=== PATIENT | male | born 1965 | race American Indian/Alaskan Native ===

== ENCOUNTER 2019-02-18 03:25 | Inpatient (IN) | payer SELFPAY ==
[2019-02-18] MEDS ORDERED: NITRO-BID 2% TP ONE (03:40)
[2019-02-18 03:54] LABS: Basophils # (Auto) 0.1 K/mm3 (0.0-0.1); Eosinophils # (Auto) 0.2 K/mm3 (0.0-0.4); Eosinophils % (Auto) 3.4 % (0.0-4.3); Hemoglobin 13.4 gm/dl (11.8-15.2); Lymphocytes # (Auto) 3.2 K/mm3 (1.2-5.4); Mean Corpuscular HGB Conc 34 % (32-34); Mean Corpuscular Volume 92 fl (84-94); Monocytes # (Auto) 0.5 K/mm3 (0.0-0.8); Monocytes % (Auto) 6.2 % (0.0-7.3); Platelet Count 249 K/mm3 (140-440); Red Blood Count 4.33 M/mm3 (3.65-5.03); Red Cell Distribution Width 14.8 % (13.2-15.2)
[2019-02-18 04:05] LABS: INR 1.3 (0.87-1.13)
[2019-02-18 04:06] LABS: Partial Thromboplastin Time 30.8 Sec. (24.2-36.6)
--- NOTE | 2019-02-18 04:10 | XRay Report ---
CHEST 1 VIEW INDICATION: dyspnea. COMPARISON: None. FINDINGS: Support devices: None. Heart: Moderate cardiomegaly. Lungs/Pleura: Limited evaluation due to body habitus. Possible basilar infiltrates. Vascular congesti on is mild. Additional findings: None. IMPRESSION: 1. Mild vascular congestion. 2. Possible basilar infiltrates. Signer Name: Zachary Willis MD Signed: 02/18/2019 4:06 AM Workstation Name: [id number]
[2019-02-18 04:13] LABS: BUN/Creatinine Ratio 8; Blood Urea Nitrogen 9 mg/dL (9-20); Calcium 9.3 mg/dL (8.4-10.2); Hemolysis Index 5
[2019-02-18] MEDS ORDERED: LASIX IV ONE (04:31)
--- NOTE | 2019-02-18 05:04 | Emergency Department Report ---
ED Shortness of Breath HPI - General Chief Complaint: Dyspnea/Respdistress Stated Complaint: SHANTEL Time Seen by Provider: 02/18/19 03:37 Source: patient, family, EMS Mode of arrival: Stretcher Limitations: No Limitations - History of Present Illness Initial Comments: Patient is a 53-year-old gentleman with a history of hypertension and congestive heart failure who is presenting with shortness of breath. Patient has been out of his medications for the last 2 months. Patient's found in respiratory distress with O2 sat in the mid 80s. He is placed on a nonrebreather. Patient states he does have some chest tightness. Patient states his Breath Is Worse with Lying Flat and Exertion. He Denies Any Fevers Chills Nausea Vomiting. Patient Has Had an Mild Cough That Is Productive of Frothy Sputum. - Related Data Allergies Allergy/AdvReac Type Severity Reaction Status Date / Time No Known Allergies Allergy Verified 02/18/19 03:44 ED Review of Systems ROS: Stated complaint: SHANTEL Other details as noted in HPI Comment: All other systems reviewed and negative ED Past Medical Hx - Past Medical History Hx Hypertension: Yes Hx Congestive Heart Failure: Yes Additional medical history: high cholesterol - Surgical History Past Surgical History?: No - Social History Smoking Status: Current Every Day Smoker Substance Use Type: Alcohol ED Physical Exam - General Limitations: No Limitations General appearance: alert, in no apparent distress - Head Head exam: Present: atraumatic, normocephalic - Eye Eye exam: Present: normal appearance - ENT ENT exam: Present: mucous membranes moist - Neck Neck exam: Present: normal inspection - Respiratory Respiratory exam: Present: normal lung sounds bilaterally, rales. Absent: respiratory distress, wheezes, rhonchi, stridor - Cardiovascular Cardiovascular Exam: Present: regular rate, normal rhythm, normal heart sounds. Absent: systolic murmur, diastolic murmur, rubs, gallop - GI/Abdominal GI/Abdominal exam: Present: soft, normal bowel sounds. Absent: distended, tenderness, guarding, rebound - Rectal Rectal exam: Present: deferred - Extremities Exam Extremities exam: Present: normal inspection, pedal edema - Back Exam Back exam: Present: normal inspection - Neurological Exam Neurological exam: Present: alert, oriented X3 - Psychiatric Psychiatric exam: Present: normal affect, normal mood - Skin Skin exam: Present: warm, dry, intact, normal color. Absent: rash ED Course Vital Signs 02/18/19 02/18/19 02/18/19 03:33 03:34 03:35 Temperature 97.9 F Pulse Rate 83 81 76 Respiratory 15 20 17 Rate Blood Pressure 142/74 142/74 O2 Sat by Pulse 97 91 93 Oximetry 02/18/19 02/18/19 02/18/19 03:37 03:39 03:41 Temperature Pulse Rate 82 83 83 Respiratory 20 17 19 Rate Blood Pressure 142/74 142/74 142/74 O2 Sat by Pulse 97 97 97 Oximetry ED Medical Decision Making - Lab Data Result diagrams: 02/18/19 03:38 02/18/19 03:38 Lab Results 02/18/19 02/18/19 02/18/19 Range/Units 03:38 03:38 03:38 WBC 7.3 (4.5-11.0) K/mm3 RBC 4.33 (3.65-5.03) M/mm3 Hgb 13.4 (11.8-15.2) gm/dl Hct 40.0 (35.5-45.6) % MCV 92 (84-94) fl MCH 31 (28-32) pg MCHC 34 (32-34) % RDW 14.8 (13.2-15.2) % Plt Count 249 (140-440) K/mm3 Lymph % (Auto) 44.0 H (13.4-35.0) % [place] % (Auto) 6.2 (0.0-7.3) % Eos % (Auto) 3.4 (0.0-4.3) % Baso % (Auto) 1.0 (0.0-1.8) % Lymph # 3.2 (1.2-5.4) K/mm3 [place] # 0.5 (0.0-0.8) K/mm3 Eos # 0.2 (0.0-0.4) K/mm3 Baso # 0.1 (0.0-0.1) K/mm3 Seg Neutrophils % 45.4 (40.0-70.0) % Seg Neutrophils # 3.3 (1.8-7.7) K/mm3 PT 15.9 H (12.2-14.9) Sec. INR 1.30 H (0.87-1.13) APTT 30.8 (24.2-36.6) Sec. Sodium 142 (137-145) mmol/L Potassium 3.6 (3.6-5.0) mmol/L Chloride 103.5 (98-107) mmol/L Carbon Dioxide 26 (22-30) mmol/L Anion Gap 16 mmol/L BUN 9 (9-20) mg/dL Creatinine 1.1 (0.8-1.5) mg/dL Estimated GFR > 60 ml/min BUN/Creatinine Ratio 8 % Glucose 112 H (75-100) mg/dL Calcium 9.3 (8.4-10.2) mg/dL Troponin T < 0.010 (0.00-0.029) ng/mL NT-Pro-B Natriuret Pep (0-900) pg/mL 02/18/19 Range/Units 03:38 WBC (4.5-11.0) K/mm3 RBC (3.65-5.03) M/mm3 Hgb (11.8-15.2) gm/dl Hct (35.5-45.6) % MCV (84-94) fl MCH (28-32) pg MCHC (32-34) % RDW (13.2-15.2) % Plt Count (140-440) K/mm3 Lymph % (Auto) (13.4-35.0) % [place] % (Auto) (0.0-7.3) % Eos % (Auto) (0.0-4.3) % Baso % (Auto) (0.0-1.8) % Lymph # (1.2-5.4) K/mm3 [place] # (0.0-0.8) K/mm3 Eos # (0.0-0.4) K/mm3 Baso # (0.0-0.1) K/mm3 Seg Neutrophils % (40.0-70.0) % Seg Neutrophils # (1.8-7.7) K/mm3 PT (12.2-14.9) Sec. INR (0.87-1.13) APTT (24.2-36.6) Sec. Sodium (137-145) mmol/L Potassium (3.6-5.0) mmol/L Chloride (98-107) mmol/L Carbon Dioxide (22-30) mmol/L Anion Gap mmol/L BUN (9-20) mg/dL Creatinine (0.8-1.5) mg/dL Estimated GFR ml/min BUN/Creatinine Ratio % Glucose (75-100) mg/dL Calcium (8.4-10.2) mg/dL Troponin T (0.00-0.029) ng/mL NT-Pro-B Natriuret Pep 1026 H (0-900) pg/mL - EKG Data -: EKG Interpreted by Me EKG shows normal: sinus rhythm, axis, intervals, QRS complexes Rate: normal - EKG Data 02/18/19 05:02 Patient with T-wave inversions lateral leads - Radiology Data Chest x-ray shows cardiomegaly with pulmonary edema - Medical Decision Making Patient is a 53-year-old [place] male who is presenting with recent respiratory distress secondary to pulmonary edema. Patient is maintaining O2 sat within normal limits with 2 L of oxygen. Patient given Lasix to started diuresing him. Patient be admitted to the hospitalist service. Critical Care Time: Yes (30) Critical care attestation.: If time is entered above; I have spent that time in minutes in the direct care of this critically ill patient, excluding procedure time. ED Disposition Clinical Impression: Acute congestive heart failure Qualifiers: Heart failure type: unspecified Qualified Code(s): I50.9 - Heart failure, unspecified Pulmonary edema Qualifiers: Chronicity: acute Qualified Code(s): J81.0 - Acute pulmonary edema Disposition: OP ADMIT IP TO THIS HOSP Is pt being admited?: Yes Does the pt Need Aspirin: No Condition: Stable Instructions: Pulmonary Edema (ED) Referrals: PRIMARY CARE, [Primary Care Provider] - 3-5 Days Time of Disposition: 05:03
[2019-02-18] MEDS ORDERED: SODIUM CHLORIDE FLUSH SYRINGE 10 ML IV PRN (05:27)
[2019-02-18] MEDS ORDERED: TYLENOL PO PRN (05:27)
[2019-02-18] MEDS ORDERED: ZOFRAN IV PRN (05:27)
--- NOTE | 2019-02-18 05:37 | History and Physical Report ---
History of Present Illness Date of examination: 02/18/19 History of present illness: 53-year-old man with a history of hypertension, CHF, hyperlipidemia comes emergency room with complaints of shortness of breath, PND and orthopnea. Also complain of chest pain going across his chest, intermittent for a few seconds, intensity 4/10, no radiation, candidate and exacerbating or relieving factors. He moved here in November and since then he ran out of his medications. Denies nausea vomiting, diaphoresis, palpitation eview Of Systems: Constitutional: no weight loss, fever, chills Ears, eyes, nose, mouth and throat: no nasal congestion, no nasal discharge, no sinus pressure, blurry vision, diplopia Neck: No neck pain or rigidity. Cardiovascular: No palpitation Respiratory: No cough Gastrointestinal: No hematochezia, abdominal pain Genitourinary : no dysuria, frequency , hematuria Musculoskeletal: no muscle ache , joint pain Integumentary: no rash, no pruritis Neurological: no parathesias, focal weakness Endocrine: no cold or heat intolerance, no polyuria or polydipsia Hematologic/Lymphatic: no easy bruising, no easy bleeding, no gland swelling Allergic/Immunologic: no urticaria, no angioedema. PAST MEDICAL HISTORY:hypertension, CHF, hyperlipidemia PAST SURGICAL HISTORY:None FAMILY HISTORY:hypertension, diabetes SOCIAL HISTORY: + tobacco, no drugs, + alcohol Medications and Allergies Allergies Allergy/AdvReac Type Severity Reaction Status Date / Time No Known Allergies Allergy Verified 02/18/19 03:44 Active Meds: Active Medications Acetaminophen (Tylenol) 650 mg PO Q4H PRN PRN Reason: Pain MILD(1-3)/Fever >100.5/MAYORGA Aspirin (Baby Aspirin) 81 mg PO QDAY [facility] Carvedilol (Coreg) 3.125 mg PO BID [facility] Enoxaparin Sodium (Lovenox) 30 mg SUB-Q QDAY [facility] Furosemide (Lasix) 40 mg IV BID@0600,1800 [facility] Lisinopril (Zestril) 2.5 mg PO QDAY [facility] Ondansetron HCl (Zofran) 4 mg IV Q8H PRN PRN Reason: Nausea And Vomiting Sodium Chloride (Sodium Chloride Flush Syringe 10 Ml) 10 ml IV BID [facility] Sodium Chloride (Sodium Chloride Flush Syringe 10 Ml) 10 ml IV PRN PRN PRN Reason: LINE FLUSH Exam - Physical Exam Narrative exam: General Apperance: The patient sitting in bed no acute distress HEENT: Normocephalic, atraumatic. Pupils equally round and reactive to light, extraocular movement intact, and no sclericterus or JVD or thyromegaly or nodule. Neck supple, no carotid bruit, mucous membranes moist, no exudate or erythema Heart: S1-S2, regular is rhythm Lungs: crackles bilaterally, breathing comfortable Abdomen: Positive bowel sounds, soft, nontender, nondistended, no organomegaly Extremities: No edema cyanosis clubbing Skin: no rash, nodule, warm and dry Neuro:CN 2 -12 intact, motor/sensory intact, speech is fluent - Constitutional Vitals: Temp Pulse Resp BP Pulse Ox 97.9 F 86 23 138/74 87 02/18/19 03:33 02/18/19 05:01 02/18/19 05:01 02/18/19 05:01 02/18/19 05:01 Results - Labs CBC & Chem 7: 02/18/19 03:38 02/18/19 03:38 Labs: Abnormal lab results 02/18/19 02/18/19 02/18/19 Range/Units 03:38 03:38 03:38 Lymph % (Auto) 44.0 H (13.4-35.0) % PT 15.9 H (12.2-14.9) Sec. INR 1.30 H (0.87-1.13) Glucose 112 H (75-100) mg/dL NT-Pro-B Natriuret Pep (0-900) pg/mL 02/18/19 Range/Units 03:38 Lymph % (Auto) (13.4-35.0) % PT (12.2-14.9) Sec. INR (0.87-1.13) Glucose (75-100) mg/dL NT-Pro-B Natriuret Pep 1026 H (0-900) pg/mL - Imaging and Cardiology EKG: image reviewed Chest x-ray: report reviewed Assessment and Plan Assessment Acute on chronic CHF, probably diastolic Hypertension Hyperlipidemia Obesity Plan Admit to medicine As diuresed with IV Lasix Cardiac enzymes, echo, consult cardiology Monitor I's and O's calmest check daily weights Start beta homar, ELI inhibitor, aspirin DVT prophylaxis
[2019-02-18 06:00] LABS: Creatine Kinase MB 4.2 ng/mL (0.0-4.0)
[2019-02-18] MEDS: LASIX IV SCH ×2 (06:38→18:40)
--- NOTE | 2019-02-18 09:23 | Event Note ---
Date: 02/18/19 Patient was admitted today was seen and examined. Reviewed laboratory and radiological data. Continue with the same management
[2019-02-18] MEDS ORDERED: BABY ASPIRIN ONE (09:57)
[2019-02-18] MEDS ORDERED: COREG ONE (09:58)
[2019-02-18] MEDS ORDERED: LOVENOX SUB-Q ONE (09:58)
[2019-02-18] MEDS ORDERED: ZESTRIL ONE (09:59)
[2019-02-18] MEDS: SODIUM CHLORIDE FLUSH SYRINGE 10 ML IV SCH ×2 (10:04→21:50)
[2019-02-18] MEDS: ZESTRIL PO SCH (10:04)
[2019-02-18] MEDS: LOVENOX SUB-Q SCH (10:04)
[2019-02-18] MEDS: BABY ASPIRIN PO SCH (10:04)
[2019-02-18] MEDS: COREG PO SCH ×2 (10:04→21:49)
[2019-02-18 12:28] LABS: Creatine Kinase MB 4.5 ng/mL (0.0-4.0)
--- NOTE | 2019-02-18 16:56 | Consultation ---
History of Present Illness Consult date: 02/18/19 Consult reason: congestive heart failure History of present illness: The patient's 53-year-old man reports a history of chronic hypertension treated in [facility] with Prinivil, carvedilol and aspirin. He recently moved to the [facility], as a consequence has not seen a doctor, and has been off his medications for 3 months. He presented to the emergency room with progressive shortness of breath and chest x-ray in the emergency room revealed cardiomegaly and mild interstitial edema consistent with congestive heart failure. There was no chest pain, no palpitations, no syncope and minimal to no significant lower extremity edema. The patient denies any known history of heart failure, does not remember any significant cardiac workup or cardiology follow-up while he lived in [place]. ECG shows sinus rhythm with diffuse nonspecific ST and T-wave abnormalities. Echocardiogram today shows a dilated cardiomyopathy, moderate to severe left ventricle systolic dysfunction, ejection fraction 35%. In addition, there is severe dilatation of the left atrium, and at least moderate mitral regurgitation. The chronicity of his left ventricular dysfunction, valvular regurgitation and atrial dilatation is uncertain, he has no awareness of any significant prior cardiac pathology. Past History Past Medical History: hypertension Medications and Allergies Allergies Allergy/AdvReac Type Severity Reaction Status Date / Time No Known Allergies Allergy Verified 02/18/19 03:44 Active Meds: Active Medications Acetaminophen (Tylenol) 650 mg PO Q4H PRN PRN Reason: Pain MILD(1-3)/Fever >100.5/MAYORGA Last Admin: 02/18/19 06:58 Dose: 650 mg Documented by: Aspirin (Baby Aspirin) 81 mg PO QDAY [facility] Last Admin: 02/18/19 10:04 Dose: 81 mg Documented by: Carvedilol (Coreg) 3.125 mg PO BID [facility] Last Admin: 02/18/19 10:04 Dose: 3.125 mg Documented by: Enoxaparin Sodium (Lovenox) 40 mg SUB-Q QDAY [facility] Last Admin: 02/18/19 10:04 Dose: 40 mg Documented by: Furosemide (Lasix) 40 mg IV BID@0600,1800 [facility] Last Admin: 02/18/19 06:38 Dose: Not Given Documented by: Lisinopril (Zestril) 2.5 mg PO QDAY [facility] Last Admin: 02/18/19 10:04 Dose: 2.5 mg Documented by: Ondansetron HCl (Zofran) 4 mg IV Q8H PRN PRN Reason: Nausea And Vomiting Sodium Chloride (Sodium Chloride Flush Syringe 10 Ml) 10 ml IV BID [facility] Last Admin: 02/18/19 10:04 Dose: 10 ml Documented by: Sodium Chloride (Sodium Chloride Flush Syringe 10 Ml) 10 ml IV PRN PRN PRN Reason: LINE FLUSH Review of Systems Cardiovascular: edema, shortness of breath, no chest pain, no orthopnea, no palpitations, no rapid/irregular heart beat, no syncope, no lightheadedness Physical Examination Vital Signs Temp Pulse Resp Pulse Ox 97.9 F 83 15 97 02/18/19 03:33 02/18/19 03:33 02/18/19 03:33 02/18/19 03:33 General appearance: no acute distress HEENT: Positive: PERRL Neck: Positive: neck supple Cardiac: Positive: Reg Rate and Rhythm Lungs: Positive: Decreased Breath Sounds Neuro: Positive: Grossly Intact Abdomen: Positive: Soft Male genitourinary: Positive: deferred Skin: Positive: Clear Extremities: Present: edema (trace) Results 02/18/19 03:38 02/18/19 03:38 Cardiac Enzymes 02/18/19 02/18/19 Range/Units 05:34 11:59 CK-MB (CK-2) 4.2 H 4.5 H (0.0-4.0) ng/mL Coagulation 02/18/19 Range/Units 03:38 PT 15.9 H (12.2-14.9) Sec. INR 1.30 H (0.87-1.13) APTT 30.8 (24.2-36.6) Sec. CBC 02/18/19 Range/Units 03:38 WBC 7.3 (4.5-11.0) K/mm3 RBC 4.33 (3.65-5.03) M/mm3 Hgb 13.4 (11.8-15.2) gm/dl Hct 40.0 (35.5-45.6) % Plt Count 249 (140-440) K/mm3 Lymph # 3.2 (1.2-5.4) K/mm3 [place] # 0.5 (0.0-0.8) K/mm3 Eos # 0.2 (0.0-0.4) K/mm3 Baso # 0.1 (0.0-0.1) K/mm3 Comprehensive Metabolic Panel 02/18/19 Range/Units 03:38 Sodium 142 (137-145) mmol/L Potassium 3.6 (3.6-5.0) mmol/L Chloride 103.5 (98-107) mmol/L Carbon Dioxide 26 (22-30) mmol/L BUN 9 (9-20) mg/dL Creatinine 1.1 (0.8-1.5) mg/dL Glucose 112 H (75-100) mg/dL Calcium 9.3 (8.4-10.2) mg/dL EKG interpretations - Telemetry EKG Rhythm: Sinus Rhythm Assessment and Plan - Patient Problems (1) Acute congestive heart failure Current Visit: Yes Status: Acute Qualifiers: Heart failure type: unspecified Qualified Code(s): I50.9 - Heart failure, unspecified Plan to address problem: Echocardiogram shows a dilated cardiomyopathy with moderate to severe left ventricular systolic dysfunction, ejection fraction 35%. We will institute optimal guidelines directed medical therapy for systolic heart failure. A predischarge thallium stress test will be recommended once heart failure fluid overload is resolved.
[2019-02-18] MEDS ORDERED: LASIX ONE (18:34)
[2019-02-18] MEDS: ALDACTONE PO SCH (21:49)
[2019-02-19 05:18] LABS: Basophils # (Auto) 0.1 K/mm3 (0.0-0.1); Basophils % (Auto) 1.3 % (0.0-1.8); Eosinophils # (Auto) 0.2 K/mm3 (0.0-0.4); Eosinophils % (Auto) 3.2 % (0.0-4.3); Hematocrit 41.8 % (35.5-45.6); Hemoglobin 14.3 gm/dl (11.8-15.2); Lymphocytes # (Auto) 2.9 K/mm3 (1.2-5.4); Lymphocytes % (Auto) 40.7 % (13.4-35.0); Mean Corpuscular HGB Conc 34 % (32-34); Mean Corpuscular Volume 93 fl (84-94); Monocytes # (Auto) 0.5 K/mm3 (0.0-0.8); Monocytes % (Auto) 7.3 % (0.0-7.3); Platelet Count 247 K/mm3 (140-440); Red Blood Count 4.52 M/mm3 (3.65-5.03); Red Cell Distribution Width 14.7 % (13.2-15.2)
[2019-02-19 05:42] LABS: BUN/Creatinine Ratio 9; Blood Urea Nitrogen 10 mg/dL (9-20); Calcium 9.2 mg/dL (8.4-10.2); Hemolysis Index 4
[2019-02-19] MEDS: LASIX IV SCH (05:59)
--- NOTE | 2019-02-19 09:59 | Progress Note ---
Assessment and Plan Congestive heart failure, acute Chronic hypertension Noncompliant with medications and outpatient follow ups. Echocardiogram this admission shows a dilated cardiomyopathy, moderate to severe left ventricle systolic dysfunction, ejection fraction 35%. In addition, there is severe dilatation of the left atrium, and at least moderate mitral regurgitation. The chronicity of his left ventricular dysfunction, valvular regurgitation and atrial dilatation is uncertain. He has no awareness of any significant prior cardiac pathology. Recommendations: Continue optimal medical therapy for acute systolic heart failure. A predischarge thallium stress test will be done today. Results are pending. Subjective Date of service: 02/19/19 Interval history: Patient reports his breathing is better. He denies chest pain. Objective Vital Signs Temp Pulse Pulse Resp BP BP Pulse Ox 02/19/19 08:50 94 02/19/19 05:17 98.6 F 89 24 135/87 94 02/18/19 23:26 96.5 F L 84 24 161/99 91 02/18/19 21:49 165/108 02/18/19 21:05 91 H 20 98 02/18/19 20:41 97 02/18/19 20:23 97.9 F 91 H 22 165/105 95 02/18/19 19:13 82 195/130 02/18/19 19:01 88 22 195/130 95 02/18/19 18:51 88 25 H 159/110 92 02/18/19 18:41 79 21 159/110 91 02/18/19 18:37 93 H 02/18/19 18:21 83 27 H 91 02/18/19 18:11 76 25 H 94 02/18/19 18:01 75 25 H 96 02/18/19 17:51 79 13 94 02/18/19 17:41 80 20 95 02/18/19 17:31 77 18 96 02/18/19 17:21 82 17 93 02/18/19 17:11 87 13 95 02/18/19 17:01 80 14 98 02/18/19 16:51 89 28 H 93 02/18/19 16:40 84 22 92 02/18/19 16:30 81 15 172/107 95 02/18/19 16:21 91 H 15 172/107 95 02/18/19 16:11 84 18 172/107 95 02/18/19 16:03 74 20 155/87 95 02/18/19 16:01 86 22 172/107 97 02/18/19 15:51 70 15 172/107 95 02/18/19 15:41 88 19 172/107 93 02/18/19 15:31 88 24 172/107 95 02/18/19 15:21 83 25 H 172/107 92 02/18/19 15:11 77 28 H 172/107 92 02/18/19 15:01 70 23 172/107 95 02/18/19 14:51 82 20 172/107 91 02/18/19 14:41 87 20 172/107 94 02/18/19 14:31 74 24 172/107 87 02/18/19 14:21 90 27 H 172/107 88 02/18/19 14:11 87 24 172/107 90 02/18/19 14:01 77 18 155/87 94 02/18/19 13:51 89 22 155/87 93 02/18/19 13:41 142/76 88 02/18/19 13:31 142/76 86 02/18/19 13:21 142/76 93 02/18/19 13:11 142/76 94 02/18/19 13:01 142/76 97 02/18/19 12:51 142/76 91 02/18/19 12:41 134/72 91 02/18/19 12:31 150/78 92 02/18/19 12:21 142/76 93 02/18/19 12:20 80 18 142/74 95 02/18/19 12:10 134/72 85 02/18/19 12:03 134/72 92 02/18/19 10:11 87 15 134/72 02/18/19 10:05 85 16 134/72 94 02/18/19 10:04 85 134/72 02/18/19 10:01 87 15 134/72 94 - Physical Examination General: No Apparent Distress HEENT: Positive: PERRL Neck: Positive: neck supple Cardiac: Positive: Reg Rate and Rhythm Lungs: Positive: Decreased Breath Sounds Neuro: Positive: Grossly Intact Abdomen: Positive: Soft Extremities: Absent: edema - Labs and Meds Cardiac Enzymes 02/18/19 Range/Units 11:59 CK-MB (CK-2) 4.5 H (0.0-4.0) ng/mL CBC 02/19/19 Range/Units 05:02 WBC 7.2 (4.5-11.0) K/mm3 RBC 4.52 (3.65-5.03) M/mm3 Hgb 14.3 (11.8-15.2) gm/dl Hct 41.8 (35.5-45.6) % Plt Count 247 (140-440) K/mm3 Lymph # 2.9 (1.2-5.4) K/mm3 [place] # 0.5 (0.0-0.8) K/mm3 Eos # 0.2 (0.0-0.4) K/mm3 Baso # 0.1 (0.0-0.1) K/mm3 Comprehensive Metabolic Panel 02/19/19 Range/Units 05:02 Sodium 141 (137-145) mmol/L Potassium 3.5 L (3.6-5.0) mmol/L Chloride 99.6 (98-107) mmol/L Carbon Dioxide 27 (22-30) mmol/L BUN 10 (9-20) mg/dL Creatinine 1.1 (0.8-1.5) mg/dL Glucose 103 H (75-100) mg/dL Calcium 9.2 (8.4-10.2) mg/dL
[2019-02-19] MEDS: BABY ASPIRIN PO SCH (10:41)
[2019-02-19] MEDS: ALDACTONE PO SCH (10:41)
[2019-02-19] MEDS: LOVENOX SUB-Q SCH (10:42)
[2019-02-19] MEDS: ZESTRIL PO SCH (10:42)
[2019-02-19] MEDS: SODIUM CHLORIDE FLUSH SYRINGE 10 ML IV SCH (10:43)
[2019-02-19] MEDS: COREG PO SCH (10:49)
[2019-02-19] MEDS ORDERED: LEXISCAN IV ONE ×2 (12:01→12:02)
[2019-02-19] MEDS ORDERED: COREG PO SCH (13:00)
[2019-02-19] MEDS ORDERED: COUMADIN PO SCH ×2 (17:00)
--- NOTE | 2019-02-19 17:22 | Progress Note ---
Assessment and Plan 53-year-old man with a history of hypertension, CHF, hyperlipidemia comes emergency room with complaints of shortness of breath, PND and orthopnea. Also complain of chest pain going across his chest, intermittent for a few seconds, intensity 4/10, no radiation, candidate and exacerbating or relieving factors. He moved here in November and since then he ran out of his medications. Denies nausea vomiting, diaphoresis, palpitation. BNP was 1026 Acute on chronic CHF, probably diastolic Hypertension Hyperlipidemia Obesity Plan diuresed with IV Lasix Troponins x 3 were normal Echo showed systolic dysfunction eit EF of 35% Cardiology following Hospital Admissions Officer I's and O's check daily weights Continue with beta homar, ELI inhibitor, aspirin DVT prophylaxis levanox Subjective Date of service: 02/19/19 Principal diagnosis: Acute on chronic systolic heart failure, HTN, HLD Interval history: shortness of breath has improved. No chest pain Objective - Constitutional Vitals: Vital Signs - 12hr 02/19/19 02/19/19 02/19/19 08:50 10:40 10:41 Temperature 98.1 F Pulse Rate 65 88 Respiratory 18 Rate Blood Pressure 140/113 140/113 O2 Sat by Pulse 94 96 Oximetry 02/19/19 02/19/19 02/19/19 11:55 12:03 12:05 Temperature Pulse Rate Respiratory Rate Blood Pressure 141/100 148/83 134/76 O2 Sat by Pulse Oximetry 02/19/19 02/19/19 02/19/19 12:07 12:09 12:12 Temperature Pulse Rate Respiratory Rate Blood Pressure 130/83 127/92 105/73 O2 Sat by Pulse Oximetry General appearance: Present: no acute distress, well-nourished - EENT Eyes: PERRL, EOM intact Ears: bilateral: normal - Neck Neck: supple, normal ROM - Respiratory Respiratory effort: normal Respiratory: bilateral: CTA - Breasts Breasts: normal - Cardiovascular Rhythm: regular Heart Sounds: Present: S1 & S2. Absent: gallop, rub Extremities: pulses intact, No edema, normal color, Full ROM - Gastrointestinal General gastrointestinal: Present: soft, non-tender, non-distended, normal bowel sounds - Genitourinary Male genitourinary: normal - Integumentary Integumentary: clear, warm, dry - Musculoskeletal Musculoskeletal: 1, strength equal bilaterally - Neurologic Neurologic: moves all extremities - Psychiatric Psychiatric: memory intact, appropriate mood/affect, intact judgment & insight - Labs CBC & Chem 7: 02/19/19 05:02 02/19/19 05:02 Labs: Abnormal lab results 02/19/19 02/19/19 Range/Units 05:02 05:02 Lymph % (Auto) 40.7 H (13.4-35.0) % Potassium 3.5 L (3.6-5.0) mmol/L Glucose 103 H (75-100) mg/dL
[2019-02-19 18:08] VITALS: BP 153/94
--- NOTE | 2019-02-19 18:33 | Discharge Summary ---
Providers - Providers Date of Admission: 02/18/19 05:27 Date of discharge: 02/19/19 Attending physician: MALINI BARNES 02/18/19 05:27 Consult to Physician [CONS] Routine Comment: Consulting Provider: DEANNE POLO Physician Instructions: Reason For Exam: chf Primary care physician: PHYSICIAN Hospitalization Reason for admission: acute on chronic systolic heart failure Condition: Stable Pertinent studies: CXR showed bibasilar infiltrate ECHO Procedures: none Hospital course: 53-year-old man with a history of hypertension, CHF, hyperlipidemia comes into the emergency room with complaints of shortness of breath, PND and orthopnea. He also complained of chest pain going across his chest, intermittent for a few seconds, 4/10 in severity, no radiation, no exacerbating or relieving factors. He moved here in November and since then he ran out of his medications. Denies nausea vomiting, diaphoresis, palpitation. BNP was 1026. commenced on diuresis, BB, ACEI, ASA and statin. While in the stress lab he developed AF. Had myocardial perfusion test that showed dilated cardiomyopathy with no ischemia. Cardiology recommended commencing anticoagulation. Since he has no payer source, he was commence on coumadin for anticoagulation per cardiology rec. However pt was adamant he want to go home today. He even threatened to sign against medical advise despite the fact he is subtherapeutic on coumadin with an INR of 1.3. I advise him of the consequence but he still insisted on going home. I then gave him a coupon for free Eliquis for one month supply and advised that he should f/u with his budget counselor Dr. Crowell who may convert him to coumadin and monitor INR in his office in 1 week. Complication and adverse effects of anticoagulation were explained to him and he expressed understanding. His is to f/u with his PCP in 3 days and cardiology in 7 days. Disposition: - TO HOME OR SELFCARE Time spent for discharge: 35 mins - Discharge Diagnoses (1) Afib Status: Acute (2) Afib Status: Acute (3) Acute congestive heart failure Status: Acute Qualifiers: Heart failure type: unspecified Qualified Code(s): I50.9 - Heart failure, unspecified (4) Pulmonary edema Status: Acute Qualifiers: Chronicity: acute Qualified Code(s): J81.0 - Acute pulmonary edema Core Measure Documentation - Palliative Care Palliative Care/ Comfort Measures: Not Applicable - Core Measures Any of the following diagnoses?: heart failure - Heart Failure Discharge Requirements ELI/ARB for LVSD if EF <40%: Yes Beta homar at discharge: Yes Exam - Constitutional Vitals: Temp Pulse Resp BP Pulse Ox 97.5 F L 80 20 153/94 93 02/19/19 17:39 02/19/19 17:39 02/19/19 17:39 02/19/19 17:39 02/19/19 17:39 General appearance: Present: no acute distress, well-nourished - EENT Eyes: Present: PERRL - Neck Neck: Present: supple, normal ROM - Respiratory Respiratory: bilateral: CTA - Cardiovascular Rhythm: regular - Extremities Extremities: no ischemia - Abdominal General gastrointestinal: Present: soft, non-tender - Integumentary Integumentary: Present: clear, warm - Musculoskeletal Musculoskeletal: strength equal bilaterally, generalized weakness - Psychiatric Psychiatric: appropriate mood/affect, cooperative - Neurologic Neurologic: CNII-XII intact, focal deficits Plan Activity: advance as tolerated Weight Bearing Status: Weight Bear as Tolerated Diet: low fat, low salt Follow up with: PRIMARY CARE, [Primary Care Provider] - 3-5 Days STAN CROWELL MD [Staff Physician] - 7 Days Prescriptions: Spironolactone [Aldactone] 25 mg PO QDAY #30 tablet Aspirin [Aspirin BABY CHEW TAB] 81 mg PO QDAY #30 tab.chew Carvedilol [Coreg] 6.25 mg PO BID #60 tablet Apixaban [Eliquis] 5 mg PO BID #60 tablet Furosemide [Lasix TAB] 40 mg PO QDAY #30 tablet AtorvaSTATin [Lipitor] 40 mg PO QHS #30 tab Lisinopril [Zestril TAB] 20 mg PO QDAY #30 tablet
--- NOTE | 2019-02-19 22:22 | Treadmill Report ---
INDICATION: Cardiomyopathy. FINDINGS: There is no scintigraphic evidence of myocardial ischemia. The left ventricular cavity is dilated. No gated imaging was performed due to underlying atrial fibrillation. CONCLUSION: Findings consistent with nonischemic cardiomyopathy. JOB# [id number] TESS/JOSE
[2019-02-20] MEDS ORDERED: LASIX PO SCH (10:00)
== END 2019-02-19 19:55 | disposition home or self-care (01) | DRG 292 ==
LOC: SUATTDRO 03:25 → ED 03:25 → 4A 05:27 → 3A 19:07
PROVIDERS: ADMIT Internal Medicine; ATTEND Family Medicine
DX: I11.0 Hypertensive heart disease with heart failure (principal); Z68.41 Body mass index [BMI] 40.0-44.9, adult; I42.0 Dilated cardiomyopathy; I50.23 Acute on chronic systolic (congestive) heart failure; F17.200 Nicotine dependence, unspecified, uncomplicated; I48.91 Unspecified atrial fibrillation; E78.5 Hyperlipidemia, unspecified; E66.01 Morbid (severe) obesity due to excess calories; G47.30 Sleep apnea, unspecified; Z91.14 Patient's other noncompliance with medication regimen; Z82.49 Family history of ischemic heart disease and other diseases of the circulatory system; Z83.3 Family history of diabetes mellitus; Z72.89 Other problems related to lifestyle
CPT/HCPCS: 36415; 71045; 78452; 80048; 82550; 82553; 83880; 84484; 85025; 85610; 85730; 87116; 93005; 93010; 93017; 93306; 96372; 96374; 96375; 99406; G0378; A9502; J1650; J1940; J2785

== ENCOUNTER 2019-08-18 10:44 | Emergency (ER) | payer OTHER ==
--- NOTE | 2019-08-18 11:21 | Emergency Department Report ---
ED General Adult HPI - General Chief complaint: Dyspnea/Respdistress Stated complaint: CHEST PAIN/DIFFICULTY BREATHING Time Seen by Provider: 08/18/19 11:08 Source: patient, EMS ( EMS documentation not available at time of chart dictation ), RN notes reviewed, old records reviewed Mode of arrival: Stretcher Limitations: No Limitations - History of Present Illness Initial comments: The patient is a 54-year-old gentleman. This patient is not known to myself previously. He does not have a local primary care doctor. He moved here from [place] a few months ago. Patient was admitted to the hospital in January 2019. He has a history of chronic hypertension, morbid obesity, dilated cardiomyopathy, ejection fraction 35%, had a nuclear cardiac stress test at this hospital which was negative for ischemic findings, and he was also found to have A. fib, possibly flutter, of uncertain duration, and was started on systemic anticoagulation. He was also initiated on guideline directed medical therapy with carvedilol, lisinopril, and spironolactone, Coumadin therapy, and was instructed to follow-up as an outpatient. In addition, [facility] probable sleep apnea. He did not follow-up. He is not taking his medications currently. He presents to the ER with a complaint of feeling anxious, and occasionally having difficulty breathing, mostly at nighttime. He is not having physical pain at this time. He reports intermittent shortness of breath. He reports that he does not feel well rested or refreshed after a good night sleep. He reports that a bed partner has indicated that he is snoring quite a bit at night. He reports that during the nighttime, he sometimes feels like he is drowning. The symptoms have been going on for weeks to months. They are gradually getting worse. at the moment, he denies headache, neck pain, chest pain, abdominal pain. He has chronic shortness of breath. He consumes cigarettes. -: Gradual Severity scale (0 -10): 1 Consistency: intermittent Improves with: rest Worsens with: other - Related Data Home Medications Medication Instructions Recorded Confirmed Last Taken Umeclidinium [place] [Incruse 62.5 mcg IH QDAY 02/19/19 02/19/19 Unknown Ellipta 62.5MCG] Previous Rx's Medication Instructions Recorded Last Taken Type Apixaban [Eliquis] 5 mg PO BID #60 tablet 08/18/19 Unknown Rx Aspirin [Aspirin BABY CHEW TAB] 81 mg PO QDAY #30 tab.chew 08/18/19 Unknown Rx AtorvaSTATin [Lipitor] 40 mg PO QHS #30 tab 08/18/19 Unknown Rx Furosemide [Lasix TAB] 40 mg PO QDAY #30 tablet 08/18/19 Unknown Rx Nicotine Polacrilex [Nicotine 4 mg BC QDAY #30 lozenge 08/18/19 Unknown Rx Lozenge] Spironolactone [Aldactone] 25 mg PO QDAY #30 tablet 08/18/19 Unknown Rx carvediloL [Coreg] 6.25 mg PO BID #60 tablet 08/18/19 Unknown Rx lisinopriL [Zestril TAB] 20 mg PO QDAY #30 tablet 08/18/19 Unknown Rx Allergies Allergy/AdvReac Type Severity Reaction Status Date / Time No Known Allergies Allergy Verified 02/18/19 03:44 ED Review of Systems ROS: Stated complaint: CHEST PAIN/DIFFICULTY BREATHING Other details as noted in HPI Constitutional: malaise. denies: fever Eyes: denies: eye discharge ENT: congestion Respiratory: shortness of breath Cardiovascular: dyspnea on exertion. denies: syncope Gastrointestinal: denies: nausea, vomiting, hematemesis, melena, hematochezia Musculoskeletal: denies: back pain Skin: denies: lesions Neurological: weakness Psychiatric: anxiety Hematological/Lymphatic: denies: easy bleeding ED Past Medical Hx - Past Medical History Previous Medical History?: Yes Hx Hypertension: Yes Hx Congestive Heart Failure: Yes Hx Diabetes: Yes Additional medical history: high cholesterol - Surgical History Past Surgical History?: No - Social History Smoking Status: Current Every Day Smoker Substance Use Type: None - Medications Home Medications: Home Medications Medication Instructions Recorded Confirmed Last Taken Type Umeclidinium [place] [Incruse 62.5 mcg IH QDAY 02/19/19 02/19/19 Unknown History Ellipta 62.5MCG] Apixaban [Eliquis] 5 mg PO BID #60 tablet 08/18/19 Unknown Rx Aspirin [Aspirin BABY CHEW TAB] 81 mg PO QDAY #30 tab.chew 08/18/19 Unknown Rx AtorvaSTATin [Lipitor] 40 mg PO QHS #30 tab 08/18/19 Unknown Rx Furosemide [Lasix TAB] 40 mg PO QDAY #30 tablet 08/18/19 Unknown Rx Nicotine Polacrilex [Nicotine 4 mg BC QDAY #30 lozenge 08/18/19 Unknown Rx Lozenge] Spironolactone [Aldactone] 25 mg PO QDAY #30 tablet 08/18/19 Unknown Rx carvediloL [Coreg] 6.25 mg PO BID #60 tablet 08/18/19 Unknown Rx lisinopriL [Zestril TAB] 20 mg PO QDAY #30 tablet 08/18/19 Unknown Rx ED Physical Exam - General Limitations: No Limitations General appearance: alert, anxious, obese - Head Head exam: Present: atraumatic, normocephalic - Eye Eye exam: Present: normal appearance, EOMI. Absent: nystagmus - ENT ENT exam: Present: normal exam, normal orophraynx, mucous membranes moist, normal external ear exam - Neck Neck exam: Present: normal inspection, full ROM. Absent: tenderness, meningismus - Respiratory Respiratory exam: Present: normal lung sounds bilaterally, decreased breath sounds. Absent: respiratory distress, wheezes, rales, rhonchi, stridor - Cardiovascular Cardiovascular Exam: Present: regular rate, tachycardia, irregular rhythm, normal heart sounds. Absent: bradycardia, systolic murmur, diastolic murmur, rubs, gallop - GI/Abdominal GI/Abdominal exam: Present: soft. Absent: distended, tenderness, guarding, rebound, rigid, pulsatile mass - Rectal Rectal exam: Present: deferred - Extremities Exam Extremities exam: Present: normal inspection, full ROM, pedal edema (Minimal 1+ edema lower extremities), other (2+ pulses noted in the bilateral upper and lower extremities. There is no palpable cord. negative Homans sign. Muscular compartments are soft. The pelvis is stable.). Absent: calf tenderness - Back Exam Back exam: Present: normal inspection, full ROM. Absent: tenderness, CVA tenderness (R), CVA tenderness (L), paraspinal tenderness, vertebral tenderness - Neurological Exam Neurological exam: Present: alert, oriented X3, other (There is no facial droop. The tongue is midline. Extraocular movements are intact bilaterally. There is 5 out of 5 strength in bilateral upper and lower extremities. Sensation is intact to light touch bilateral upper and lower extremities. ). Absent: motor sensory deficit - Psychiatric Psychiatric exam: Present: anxious - Skin Skin exam: Present: warm, dry, intact, normal color. Absent: rash ED Course Vital Signs 08/18/19 08/18/19 08/18/19 11:05 12:41 13:13 Temperature 98 F Pulse Rate 100 H 102 H 104 H Respiratory 24 20 Rate Blood Pressure 149/93 Blood Pressure 157/108 155/114 [Left] O2 Sat by Pulse 97 95 Oximetry - Reevaluation(s) Reevaluation #1: 08/18/19 13:05 Differential diagnosis, including but not limited to: Obstructive sleep apnea, pulmonary hypertension, medication noncompliance chronic hypertension, A. fib/flutter, congestive heart failure, nonischemic cardiomyopathy Assessment and plan: 54-year-old gentleman likely experiencing with natural history of poorly managed chronic medical issues. He is afebrile with reassuring vital signs. His tachycardia has improved, and occasionally, heart rate goes down to the high 90s. He is saturating well on room air. His physical exam is fairly unremarkable. Screening laboratory studies pending. Case management consultation is reque sted. No pulmonary embolism or DVT risk factors, low risk by Wells criteria. Cardiovascular risk factor profile was reviewed and appreciated, however, he had a stress test with plan the past few months. Furthermore, our local cardiology practices are typically happy to see patients for close outpatient follow-up. We will discuss with cardiology once his initial data points have resulted. Discussed this plan of care with the patient who is amenable to this plan of care. 08/18/19 14:07 Reevaluation #2: 08/18/19 13:24 Patient resting comfortably, feels improved, and is in no acute distress. Prescriptions are refilled. He was given a good Rx prescription card. He was also given an Eliquis card. We discussed the need to closely follow-up, lose weight and stop smoking. Reevaluation #3: 08/18/19 13:31 Contacted [place] [facility] nurse practitioner, Keeley Armenta Patient set up for follow-up appointment with Dr. Polo, at 2:10 PM, this Friday, August 20, 2019. Reevaluation #4: 08/18/19 14:07 EKG unchanged x2. Given outpatient resources by case management, and affordable prescription options. Patient endorsing readiness for discharge. ED Medical Decision Making - Lab Data Result diagrams: 08/18/19 11:50 08/18/19 11:50 Vital Signs 08/18/19 08/18/19 11:05 12:41 Temperature 98 F Pulse Rate 100 H 102 H Respiratory 24 Rate Blood Pressure 149/93 Blood Pressure 157/108 [Left] O2 Sat by Pulse 97 Oximetry Lab Results 08/18/19 08/18/19 Range/Units 11:50 11:50 WBC 7.2 (4.5-11.0) K/mm3 RBC 4.69 (3.65-5.03) M/mm3 Hgb 14.9 (11.8-15.2) gm/dl Hct 44.4 (35.5-45.6) % MCV 95 H (84-94) fl MCH 32 (28-32) pg MCHC 34 (32-34) % RDW 14.5 (13.2-15.2) % Plt Count 270 (140-440) K/mm3 PT 15.5 H (12.2-14.9) Sec. INR 1.21 H (0.87-1.13) APTT 34.1 (24.2-36.6) Sec. - EKG Data -: EKG Interpreted by Me - EKG Data 08/18/19 13:03 The EKG shows atrial flutter, variable rate, QTC prolonged, 491 ms, T wave inversions in the lateral leads, normal axis, not consistent with ST elevation myocardial infarction. The EKG appears to show nonspecific changes when compared to prior EKG. - Radiology Data Radiology results: report reviewed, image reviewed Print Report Referring Physician: GABRIEL HOFFMAN Patient Name: JASWINDER MONTGOMERY Date of : 1965 Sex: Male Report Date: 2019-08-18 Report Status: Finalized Findings [facility] [address] [place] [address] XRay Report Signed Patient: JASWINDER MONTGOMERY III MR#: [id number] : 1965 Acct:[id number] Age/Sex: 54 / M ADM Date: 08/18/19 Loc: ED Attending Dr: Ordering Physician: GABRIEL HOFFMAN MD Date of Service: 08/18/19 Procedure(s): XR chest 1V ap Accession Number(s): [id number] cc: GABRIEL HOFFMAN MD Fluoro Time In Minutes: CHEST 1 VIEW INDICATION: Dyspnea. COMPARISON: 02/18/2019 FINDINGS: Support devices: None. Heart: Within normal limits. Pulmonary vasculature: Mild central vascular congestion and i ndistinctness of the pulmonary vessels. Lungs/Pleura: Mild diffuse increased opacity in the right lung base which may be due to overlying soft tissue. Additional findings: None. IMPRESSION: 1. Cardiomegaly and pulmonary venous hypertension. 2. No significant change compared to the previous exam. Signer Name: Bakari Clark MD Signed: 08/18/2019 12:15 PM Workstation Name: [id number] Transcribed By: REF Dictated By: BAKARI CLARK MD Electronically Authenticated By: BAKARI CLARK MD Signed Date/Time: 08/18/19 1215 Critical care attestation.: If time is entered above; I have spent that time in minutes in the direct care of this critically ill patient, excluding procedure time. ED Disposition Clinical Impression: History of CHF (congestive heart failure), Obesity, Nonadherence to medication, Chronic a-fib Disposition: - TO HOME OR SELFCARE Is pt being admited?: No Does the pt Need Aspirin: No Condition: Good Additional Instructions: Patient has a follow-up appointment with cardiology, Dr. polo, August 20, 2019, at 2:10 PM, at the following address/location: [address] [place] [address], [place] [address] Please make certain to not miss this appointment. Take the prescription medications as directed. Follow-up with the primary care doctor within the next 2 weeks. Follow-up within the next 7 to 10 days with a sleep specialist. Local primary care doctor include the following: Dr Wen Ellis, [facility] Local cardiology include the following: Dr Polo Local sleep specialist include the following: Dr Ragland, Dr Jiang Recommend that the patient diet, lose weight, participate in exercise as tolerated, and avoid consumption of tobacco and smoke products. It is important that the patient do all of these, and take the medications as prescribed and directed. Noncompliance with therapy increases lifetime risk for heart attack, stroke, disability, , paralysis, loss of quality of life. Return to the emergency room right away with new, worsened or different symptoms, or symptoms not present on the initial emergency room evaluation. Prescriptions: AtorvaSTATin [Lipitor] 40 mg PO QHS #30 tab Spironolactone [Aldactone] 25 mg PO QDAY #30 tablet Aspirin [Aspirin BABY CHEW TAB] 81 mg PO QDAY #30 tab.chew carvediloL [Coreg] 6.25 mg PO BID #60 tablet Apixaban [Eliquis] 5 mg PO BID #60 tablet Furosemide [Lasix TAB] 40 mg PO QDAY #30 tablet Nicotine Polacrilex [Nicotine Lozenge] 4 mg BC QDAY #30 lozenge lisinopriL [Zestril TAB] 20 mg PO QDAY #30 tablet Referrals: [facility] [Provider Group] - 3-5 Days ZOHREH ELLIS MD [Staff Physician] - 3-5 Days BONNIE JIANG MD [Staff Physician] - 3-5 Days LOR SWAN MD [Staff Physician] - 3-5 Days DEANNE POLO MD [Staff Physician] - 08/20/19 2:10 pm ([address] [place] [address], [place] [address] )
[2019-08-18] MEDS ORDERED: ASPIRIN 81 MG TAB CHEW PO SCH (12:00)
[2019-08-18] MEDS ORDERED: FUROSEMIDE 40 MG TAB PO SCH (12:00)
[2019-08-18] MEDS ORDERED: SPIRONOLACTONE 25 MG TAB PO SCH (12:00)
[2019-08-18] MEDS ORDERED: carvediloL 6.25 MG TAB PO SCH (12:00)
[2019-08-18] MEDS ORDERED: LISINOPRIL 20 MG TAB PO SCH (12:00)
--- NOTE | 2019-08-18 12:19 | XRay Report ---
CHEST 1 VIEW INDICATION: Dyspnea. COMPARISON: 02/18/2019 FINDINGS: Support devices: None. Heart: Within normal limits. Pulmonary vasculature: Mild central vascular congestion and indistinctness of the pulmonary vessels. Lungs/Pleura: Mild diffuse increased opacity in the right lung base which may be due to overlying sof t tissue. Additional findings: None. IMPRESSION: 1. Cardiomegaly and pulmonary venous hypertension. 2. No significant change compared to the previous exam. Signer Name: Brannon Hanks MD Signed: 08/18/2019 12:15 PM Workstation Name: [id number]
[2019-08-18 12:28] LABS: Hematocrit 44.4 % (35.5-45.6); Hemoglobin 14.9 gm/dl (11.8-15.2); Mean Corpuscular HGB Conc 34 % (32-34); Mean Corpuscular Volume 95 fl (84-94); Platelet Count 270 K/mm3 (140-440); Red Blood Count 4.69 M/mm3 (3.65-5.03); Red Cell Distribution Width 14.5 % (13.2-15.2)
[2019-08-18 12:51] LABS: INR 1.21 (0.87-1.13); Partial Thromboplastin Time 34.1 Sec. (24.2-36.6)
[2019-08-18 13:02] LABS: Alanine Aminotransferase 20 units/L (7-56); Albumin 4.2 g/dL (3.9-5); BUN/Creatinine Ratio 10; Blood Urea Nitrogen 11 mg/dL (9-20); Calcium 9.8 mg/dL (8.4-10.2); Hemolysis Index 0
[2019-08-18 13:13] VITALS: BP 155/114
== END 2019-08-18 14:48 | disposition home or self-care (01) ==
LOC: ED 10:44
DX: I50.9 Heart failure, unspecified (principal); I48.20 Chronic atrial fibrillation, unspecified; E66.9 Obesity, unspecified; I11.0 Hypertensive heart disease with heart failure; E11.9 Type 2 diabetes mellitus without complications; F17.200 Nicotine dependence, unspecified, uncomplicated; Z91.14 Patient's other noncompliance with medication regimen; Z79.82 Long term (current) use of aspirin; Z79.899 Other long term (current) drug therapy
CPT/HCPCS: 36415; 71045; 80053; 82550; 83735; 84484; 85027; 85610; 85730; 93005; 93010

== ENCOUNTER 2020-11-08 06:04 | Emergency (ER) | payer MEDICAID ==
--- NOTE | 2020-11-08 07:33 | Emergency Department Report ---
ED Shortness of Breath HPI - General Chief Complaint: Dyspnea/Respdistress Stated Complaint: CHEST PAIN Time Seen by Provider: 11/08/20 07:01 Source: patient, EMS Mode of arrival: Stretcher Limitations: No Limitations - History of Present Illness Initial Comments: 55-year-old male, history of hypertension, atrial fibrillation, CHF, presents to ED with shortness of breath. Patient states that shortness of breath began a couple of days ago. Initially, patient reports she is having difficulty when lying flat. Patient states they have progressed to where this morning, he was having difficulty breathing just sitting upright. Patient denies any chest pain, cough, fever, lower extremity swelling. Patient states he has been compliant with his diuretics. Patient reports he is fully vaccinated against COVID-19. MD Complaint: shortness of breath -: days(s) (3) Severity: moderate Quality: other (Painless) Consistency: intermittent Improves With: rest, upright position Worsens With: lying flat, exertion Known History Of: congestive heart failure - Related Data Home Oxygen Therapy: No Home Medications Medication Instructions Recorded Confirmed Last Taken Umeclidinium [place] [Incruse 62.5 mcg IH QDAY 02/19/19 02/19/19 Unknown Ellipta 62.5MCG] Previous Rx's Medication Instructions Recorded Last Taken Type Apixaban [Eliquis] 5 mg PO BID #60 tablet 08/18/19 Unknown Rx Aspirin [Aspirin BABY CHEW TAB] 81 mg PO QDAY #30 tab.chew 08/18/19 Unknown Rx AtorvaSTATin [Lipitor] 40 mg PO QHS #30 tab 08/18/19 Unknown Rx Furosemide [Lasix TAB] 40 mg PO QDAY #30 tablet 08/18/19 Unknown Rx Nicotine Polacrilex [Nicotine 4 mg BC QDAY #30 lozenge 08/18/19 Unknown Rx Lozenge] Spironolactone [Aldactone] 25 mg PO QDAY #30 tablet 08/18/19 Unknown Rx carvediloL [Coreg] 6.25 mg PO BID #60 tablet 08/18/19 Unknown Rx lisinopriL [Zestril TAB] 20 mg PO QDAY #30 tablet 08/18/19 Unknown Rx Allergies Allergy/AdvReac Type Severity Reaction Status Date / Time No Known Allergies Allergy Verified 02/18/19 03:44 ED Review of Systems ROS: Stated complaint: CHEST PAIN Other details as noted in HPI Comment: All other systems reviewed and negative Constitutional: denies: chills, fever Respiratory: orthopnea, SOB with exertion, SOB at rest. denies: cough Cardiovascular: dyspnea on exertion. denies: chest pain Musculoskeletal: other (Denies lower extremity pain or swelling) ED Past Medical Hx - Past Medical History Hx Hypertension: Yes Hx Congestive Heart Failure: Yes Hx Diabetes: Yes Additional medical history: high cholesterol - Surgical History Past Surgical History?: No - Social History Smoking Status: Unknown if ever smoked Substance Use Type: None - Medications Home Medications: Home Medications Medication Instructions Recorded Confirmed Last Taken Type Umeclidinium [place] [Incruse 62.5 mcg IH QDAY 02/19/19 02/19/19 Unknown History Ellipta 62.5MCG] Apixaban [Eliquis] 5 mg PO BID #60 tablet 08/18/19 Unknown Rx Aspirin [Aspirin BABY CHEW TAB] 81 mg PO QDAY #30 tab.chew 08/18/19 Unknown Rx AtorvaSTATin [Lipitor] 40 mg PO QHS #30 tab 08/18/19 Unknown Rx Furosemide [Lasix TAB] 40 mg PO QDAY #30 tablet 08/18/19 Unknown Rx Nicotine Polacrilex [Nicotine 4 mg BC QDAY #30 lozenge 08/18/19 Unknown Rx Lozenge] Spironolactone [Aldactone] 25 mg PO QDAY #30 tablet 08/18/19 Unknown Rx carvediloL [Coreg] 6.25 mg PO BID #60 tablet 08/18/19 Unknown Rx lisinopriL [Zestril TAB] 20 mg PO QDAY #30 tablet 08/18/19 Unknown Rx ED Physical Exam - General Limitations: No Limitations General appearance: alert, in no apparent distress, obese - Head Head exam: Present: atraumatic, normocephalic - Eye Eye exam: Present: normal appearance, EOMI - ENT ENT exam: Present: mucous membranes moist - Neck Neck exam: Present: normal inspection - Respiratory Respiratory exam: Present: normal lung sounds bilaterally. Absent: respiratory distress, rales - Cardiovascular Cardiovascular Exam: Present: tachycardia, irregular rhythm - GI/Abdominal GI/Abdominal exam: Present: soft. Absent: distended, tenderness - Extremities Exam Extremities exam: Present: normal inspection. Absent: pedal edema - Neurological Exam Neurological exam: Present: alert, oriented X3 - Psychiatric Psychiatric exam: Present: normal affect, normal mood - Skin Skin exam: Present: warm, dry, intact, normal color ED Course Vital Signs 11/08/20 11/08/20 11/08/20 06:05 06:13 06:15 Temperature 98.4 F Pulse Rate 134 H 118 H 113 H Respiratory 21 21 Rate Blood Pressure Blood Pressure [Left] O2 Sat by Pulse Oximetry 11/08/20 11/08/20 11/08/20 06:31 06:43 07:01 Temperature Pulse Rate 111 H 124 H 114 H Respiratory 16 16 20 Rate Blood Pressure 138/91 Blood Pressure 137/94 [Left] O2 Sat by Pulse 99 100 97 Oximetry 11/08/20 11/08/20 11/08/20 07:31 07:45 07:50 Temperature Pulse Rate 112 H Respiratory 22 Rate Blood Pressure 155/102 Blood Pressure [Left] O2 Sat by Pulse 94 88 95 Oximetry 11/08/20 11/08/20 11/08/20 08:01 08:23 08:30 Temperature Pulse Rate 115 H 89 Respiratory 26 H Rate Blood Pressure 162/120 132/76 Blood Pressure [Left] O2 Sat by Pulse Oximetry 11/08/20 11/08/20 11/08/20 09:01 09:30 09:48 Temperature Pulse Rate 99 H 114 H 113 H Respiratory 13 27 H Rate Blood Pressure 160/115 185/145 185/145 Blood Pressure [Left] O2 Sat by Pulse 98 98 Oximetry - Reevaluation(s) Reevaluation #1: 11/08/20 09:32 Spoke with patient and recommended admission. Despite our efforts, Mr. Brownlee has decided to leave AGAINST MEDICAL ADVICE. He has a normal mental status and full decisional capacity. Patient understands his condition to be dyspnea, hypoxia, A. fib with RVR, elevated troponin and the risks of leaving AMA, including but not limited to permanent disability and . Patient spoke with his over the phone, who also tried to get patient to stay for admission, but patient still refused. Patient has had an opportunity to ask questions about his medical condition. The patient has been informed that he may return for care anytime and has been referred to his PCP and vice president fixed income for follow-up LADI. ED Medical Decision Making - Lab Data Result diagrams: 11/08/20 07:42 11/08/20 07:42 - EKG Data -: EKG Interpreted by Me EKG shows normal: QRS complexes, ST-T waves Rate: tachycardia (rate 112) - EKG Data When compared to previous EKG there are: no significant change (compared to 08/18/20) Interpretation: other (atrial fibrillation; PVCs present) - Radiology Data Radiology results: report reviewed, image reviewed - Medical Decision Making 55-year-old male presents to ED with shortness of breath. O2 sats mostly normal, but did dip down to 88% on room air. Chest x-ray negative for any acute findings. CTA was done which is also negative for PE, infiltrate, or pulmonary edema. EKG shows A. fib, tachycardia, no ST changes. Troponin elevated. Patient given metoprolol for rate control as his heart rate was mostly in the 110s, but upwards of 120s. I spoke with patient regarding admission secondary to his elevated troponin, A. fib, and hypoxia. Patient refused admission. AMA form signed. Return precautions given. - Differential Diagnosis CHF, PE, ACS Critical Care Time: Yes Critical care time in (mins) excluding proc time.: 35 Critical care attestation.: If time is entered above; I have spent that time in minutes in the direct care of this critically ill patient, excluding procedure time. Critical Care Time: 35 min ED Disposition Clinical Impression: CHF (congestive heart failure), Hypoxia, Elevated troponin, Atrial fibrillation with RVR Disposition: -07 LEFT AGAINST MED ADVICE Is pt being admited?: No Condition: Stable Instructions: Hypoxemia, Living With Heart Failure, Atrial Fibrillation, [id number] Referrals: PRIMARY CARE, [Primary Care Provider] - 3-5 Days Time of Disposition: 09:34
[2020-11-08 07:55] LABS: Basophils # (Auto) 0.1 K/mm3 (0.0-0.1); Basophils % (Auto) 1.5 % (0.0-1.8); Eosinophils # (Auto) 0.2 K/mm3 (0.0-0.4); Eosinophils % (Auto) 1.9 % (0.0-4.3); Hemoglobin 15.5 gm/dl (11.8-15.2); Lymphocytes # (Auto) 3.5 K/mm3 (1.2-5.4); Lymphocytes % (Auto) 42.9 % (13.4-35.0); Mean Corpuscular HGB Conc 34 % (32-34); Mean Corpuscular Volume 99 fl (84-94); Monocytes # (Auto) 0.6 K/mm3 (0.0-0.8); Monocytes % (Auto) 7.9 % (0.0-7.3); Red Blood Count 4.53 M/mm3 (3.65-5.03); Red Cell Distribution Width 14.1 % (13.2-15.2)
--- NOTE | 2020-11-08 07:55 | XRay Report ---
CHEST 1 VIEW INDICATION: sob. COMPARISON: 08/18/2019 FINDINGS: Support devices: None. Heart: Stable cardiomegaly Lungs/Pleura: The lungs are clear with no evidence for pneumonia, pleural effusion or pneumothorax. Additional findings: None. IMPRESSION: Stable cardiomegaly. Lungs clear. Signer Name: Edmond Meyer Jr, MD Signed: 11/08/2020 7:50 AM Workstation Name: [id number]
[2020-11-08 08:13] LABS: INR 1.17 (0.87-1.13)
[2020-11-08 08:14] LABS: BUN/Creatinine Ratio 9; Blood Urea Nitrogen 10 mg/dL (9-20); Calcium 9.9 mg/dL (8.4-10.2); Hemolysis Index 12
[2020-11-08 08:49] LABS: Platelet Count 253 K/mm3 (140-440)
--- NOTE | 2020-11-08 08:58 | Cat Scan Report ---
CT angio chest INDICATION: MAIN. TECHNIQUE: All CT scans at this location are performed using CT dose reduction for ALARA by means of automated e xposure control. 3 plane MIP and 3-D reconstructions were produced. COMPARISON: None available. FINDINGS: Small anterior mediastinal and paratracheal nodes, but no significant mediastinal, hilar or axillary adenopathy. Heart is mildly enlarged. No acute pulmonary or pleural disease. No evidence of pulmonary embolus. IMPRESSION: 1. Negative for pulmonary embolus or other acute abnormality. Signer Name: Jef Bradley MD Signed: 11/08/2020 8:54 AM Workstation Name: [id number]
[2020-11-08 09:21] LABS: Chol/HDL Ratio 4.44 %; HDL Cholesterol 34 mg/dL (40-59); LDL Cholesterol,Direct 107 mg/dL (50-130)
[2020-11-08] MEDS ORDERED: METOPROLOL TARTRATE 5 MG/5 ML INJ IV ONE ×2 (09:30→09:47)
[2020-11-08] MEDS ORDERED: ASPIRIN 325 MG TAB PO ONE (09:33)
[2020-11-08 09:50] VITALS: BP 185/145
--- NOTE | 2020-11-08 10:51 | Electrocardiograph Report ---
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
== END 2020-11-08 09:50 | disposition left against medical advice (07) ==
LOC: ED 06:04
DX: I48.20 Chronic atrial fibrillation, unspecified (principal); I11.0 Hypertensive heart disease with heart failure; I50.9 Heart failure, unspecified; E11.9 Type 2 diabetes mellitus without complications; E78.00 Pure hypercholesterolemia, unspecified; R09.02 Hypoxemia; R74.8 Abnormal levels of other serum enzymes; Z79.01 Long term (current) use of anticoagulants; Z79.82 Long term (current) use of aspirin; Z79.899 Other long term (current) drug therapy
CPT/HCPCS: 36415; 71045; 71275; 80048; 80061; 83880; 84484; 85025; 85610; 93005; 96374; 99291; Q9967; 99285

== ENCOUNTER 2021-06-08 20:59 | Emergency (ER) | payer MEDICAID, MEDICARE ==
[2021-06-08] MEDS ORDERED: oxyCODONE /ACETAMINOPHEN 5-325MG TAB PO ONE (23:03)
--- NOTE | 2021-06-08 23:04 | Emergency Department Report ---
ED General Adult HPI - General Chief complaint: Extremity Injury, Lower Stated complaint: LT ANKLE PAIN AND SWOLLEN Time Seen by Provider: 06/08/21 22:36 Source: patient, family, EMS ( EMS documentation not available at time of chart dictation ), RN notes reviewed, old records reviewed Mode of arrival: Stretcher Limitations: Physical Limitation - History of Present Illness Initial comments: The patient is a 55-year-old gentleman. I have evaluated this patient in the past. Past medical history includes hypertension, morbid obesity, dilated cardiomy opathy, EF 35%, A. fib, supposed to be on systemic anticoagulation. 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 He reports intermittent compliance with his outpatient medications. He presents to the ER today with complaints of nontraumatic left ankle pain and swelling, over the past few days. He reports that 2 weeks ago, he developed spontaneous left-sided ankle pain and swelling, which resolved on its own. He then reports that over the past few days, he has throbbing left-sided nonradiating ankle pain. He reports copious salt intake, and occasional alcohol intake. He currently denies headache, neck pain, chest pain, abdominal pain, new/different shortness of breath, hematemesis and bright red blood per rectum. He denies IV drug use and fevers. He has a list of medications at home, but does not know the medications that he takes at this time. No history of arthrocentesis in the past. As far as he knows, he does not carry an existing diagnosis of gout -: Gradual, days(s), week(s) Location: right, lower extremity Quality: aching Consistency: intermittent Improves with: rest Worsens with: movement - Related Data Home Medications Medication Instructions Recorded Confirmed Last Taken Umeclidinium [place] [Incruse 62.5 mcg IH QDAY 02/19/19 02/19/19 Unknown Ellipta 62.5MCG] Previous Rx's Medication Instructions Recorded Last Taken Type Nicotine Polacrilex [Nicotine 4 mg BC QDAY #30 lozenge 08/18/19 Unknown Rx Lozenge] Acetaminophen [Non-Aspirin Extra 650 mg PO Q6HR PRN #30 tablet 06/09/21 Unknown Rx Strength] Apixaban [Eliquis] 5 mg PO BID #60 tablet 06/09/21 Unknown Rx Aspirin [Aspirin BABY CHEW TAB] 81 mg PO QDAY #30 tab.chew 06/09/21 Unknown Rx AtorvaSTATin [Lipitor] 40 mg PO QHS #30 tab 06/09/21 Unknown Rx Furosemide [Lasix TAB] 40 mg PO QDAY #30 tablet 06/09/21 Unknown Rx Morphine Sulfate [Morphine Sulfate 1 tab PO Q6HR PRN #10 tablet 06/09/21 Unknown Rx IR] Spironolactone [Aldactone] 25 mg PO QDAY #30 tablet 06/09/21 Unknown Rx carvediloL [Coreg] 6.25 mg PO BID #60 tablet 06/09/21 Unknown Rx lisinopriL [Zestril TAB] 20 mg PO QDAY #30 tablet 06/09/21 Unknown Rx Allergies Allergy/AdvReac Type Severity Reaction Status Date / Time No Known Allergies Allergy Verified 02/18/19 03:44 ED Review of Systems ROS: Stated complaint: LT ANKLE PAIN AND SWOLLEN Other details as noted in HPI Constitutional: other (Patient denies intravenous drug). denies: fever Eyes: denies: eye discharge ENT: denies: epistaxis Respiratory: shortness of breath (Chronic, no other new, worsened or different) Cardiovascular: edema (Chronic). denies: chest pain, palpitations Gastrointestinal: abdominal pain Musculoskeletal: joint swelling, arthralgia. denies: myalgia Neurological: denies: weakness ED Past Medical Hx - Past Medical History Hx Hypertension: Yes Hx Congestive Heart Failure: Yes Hx Diabetes: Yes Additional medical history: high cholesterol - Surgical History Past Surgical History?: No - Social History Smoking Status: Unknown if ever smoked Substance Use Type: Other - Medications Home Medications: Home Medications Medication Instructions Recorded Confirmed Last Taken Type Umeclidinium [place] [Incruse 62.5 mcg IH QDAY 02/19/19 02/19/19 Unknown History Ellipta 62.5MCG] Nicotine Polacrilex [Nicotine 4 mg BC QDAY #30 lozenge 08/18/19 Unknown Rx Lozenge] Acetaminophen [Non-Aspirin Extra 650 mg PO Q6HR PRN #30 tablet 06/09/21 Unknown Rx Strength] Apixaban [Eliquis] 5 mg PO BID #60 tablet 06/09/21 Unknown Rx Aspirin [Aspirin BABY CHEW TAB] 81 mg PO QDAY #30 tab.chew 06/09/21 Unknown Rx AtorvaSTATin [Lipitor] 40 mg PO QHS #30 tab 06/09/21 Unknown Rx Furosemide [Lasix TAB] 40 mg PO QDAY #30 tablet 06/09/21 Unknown Rx Morphine Sulfate [Morphine Sulfate 1 tab PO Q6HR PRN #10 tablet 06/09/21 Unknown Rx IR] Spironolactone [Aldactone] 25 mg PO QDAY #30 tablet 06/09/21 Unknown Rx carvediloL [Coreg] 6.25 mg PO BID #60 tablet 06/09/21 Unknown Rx lisinopriL [Zestril TAB] 20 mg PO QDAY #30 tablet 06/09/21 Unknown Rx ED Physical Exam - General Limitations: No Limitations, Physical Limitation General appearance: alert, obese - Head Head exam: Present: atraumatic, normocephalic - Eye Eye exam: Present: normal appearance, EOMI. Absent: nystagmus - ENT ENT exam: Present: normal exam, normal orophraynx, mucous membranes moist, normal external ear exam - Neck Neck exam: Present: normal inspection, full ROM. Absent: tenderness, meningismus - Respiratory Respiratory exam: Present: normal lung sounds bilaterally. Absent: respiratory distress, wheezes, rales, rhonchi, stridor, decreased breath sounds - Cardiovascular Cardiovascular Exam: Present: regular rate, irregular rhythm, normal heart sounds. Absent: bradycardia, tachycardia, systolic murmur, diastolic murmur, rubs, gallop - GI/Abdominal GI/Abdominal exam: Present: soft. Absent: distended, tenderness, guarding, rebound, rigid, pulsatile mass - Rectal Rectal exam: Present: deferred - Extremities Exam Extremities exam: Present: normal inspection, full ROM, tenderness (Minimal tenderness to the left ankle. However, range of motion intact actively and passively. There is no redness, pus or streaking), pedal edema (1+ edema bilateral lower extremity), other (2+ pulses noted in the bilateral upper and lower extremities. There is no long bony tenderness. The muscular compartments are soft.). Absent: calf tenderness - Back Exam Back exam: Present: normal inspection. Absent: tenderness, CVA tenderness (R), CVA tenderness (L), paraspinal tenderness, vertebral tenderness - Neurological Exam Neurological exam: Present: alert, oriented X3, other (No facial droop. Tongue midline. Extraocular movements intact bilaterally. Facial sensation intact to light touch in V1, V2, V3 distribution bilaterally. 5 and a 5 strength in 4 extremities. Sensation intact to light touch in 4 extremities.). Absent: motor sensory deficit - Psychiatric Psychiatric exam: Present: normal affect, normal mood - Skin Skin exam: Present: warm, dry, intact, normal color. Absent: rash ED Course Vital Signs 06/08/21 06/08/21 23:18 23:43 Temperature 97.8 F Pulse Rate 57 L Respiratory 16 18 Rate Blood Pressure 124/76 [Right] O2 Sat by Pulse 97 Oximetry - Reevaluation(s) Reevaluation #1: 06/08/21 23:33 Differential diagnosis, including but not limited to: Arthritis, sprain, strain, fracture, dislocation, gout, pseudogout Assessment and plan: 55-year-old gentleman, who is morbidly obese, with poor diet and lifestyle habits, who endorses recent consumption of alcohol, processed food, and salt, presenting with intermittent left ankle monoarthritis, who denies IV drug use. I suspect inflammatory arthropathy. We will treat his sy mptoms, obtain appropriate laboratory studies, x-ray of ankle, have requested that patient presented with a list of medications that he takes. We will reassess. 06/09/21 01:05 Laboratory studies reviewed and appreciated. Range of motion is improved. Patient reports his home medications are carvedilol, spironolactone, and atorvastatin. He is not taking additional medications. The patient is agreeable to diagnostic arthrocentesis, given new onset monoarticular arthritis. Discussed risk, benefits and alternatives. Patient will sign informed consent and we will perform the procedure. 06/09/21 02:15 Arthrocentesis is unsuccessful. Discussed with orthopedic surgeon on-call, We discussed the patient's history, physical, laboratory studies and imaging studies, and overall clinical impression. He advises that discharge is reasonable, which I agree with, and further advises that he can see the patient in the office this week, Friday or Friday as an outpatient, and perform arthrocentesis as an outpatient Rest, ice, compression, elevation, weightbearing as tolerated, pain medication. We will also refill patient's medications He will need to follow-up with his outpatient primary care doctor and supervisor cereal. - Joint Aspiration/Injection Consent Obtained: verbal consent, written consent, emergent situation Indications: R/O crystal arthropathy Side of Body: left Joint Aspirated: ankle Ultrasound Guidance: No Skin Prep: sterile prep and drape Local Anesthesia Used: Lidocaine 1% Amount of Anesthesia Used (mls): 10 Needle Size Used: 18G Patient Tolerated Procedure: well Complications: local bleeding Additional Comments: Risks, benefits and alternatives discussed with patient for left ankle arthrocentesis. Patient signed a written and verbal informed consent. The left ankle is prepped and draped in typical sterile fashion, and then, using a 26- gauge needle, the left medial ankle is anesthetized with 10 cc of 1% lidocaine without epinephrine. Then, using landmark guidance, an 18-gauge needle is gently inserted into the left medial ankle, but the left ankle joint was not able to be aspirated or accessed. The patient had minimal pain and bleeding, and otherwise tolerated the procedure well ED Medical Decision Making - Lab Data Result diagrams: 06/08/21 23:08 06/08/21 23:08 Vital Signs 06/08/21 23:18 Respiratory 16 Rate Lab Results 06/08/21 06/08/21 06/08/21 Range/Units 23:08 23:08 23:08 WBC 8.2 (4.5-11.0) K/mm3 RBC 4.69 (3.65-5.03) M/mm3 Hgb 15.4 H (11.8-15.2) gm/dl Hct 47.3 H (35.5-45.6) % MCV 101 H (84-94) fl MCH 33 H (28-32) pg MCHC 33 (32-34) % RDW 14.1 (13.2-15.2) % Plt Count 229 (140-440) K/mm3 Lymph % (Auto) 33.0 (13.4-35.0) % [place] % (Auto) 10.2 H (0.0-7.3) % Eos % (Auto) 1.3 (0.0-4.3) % Baso % (Auto) 0.8 (0.0-1.8) % Lymph # (Auto) 2.7 (1.2-5.4) K/mm3 [place] # (Auto) 0.8 (0.0-0.8) K/mm3 Eos # (Auto) 0.1 (0.0-0.4) K/mm3 Baso # (Auto) 0.1 (0.0-0.1) K/mm3 Seg Neutrophils % 54.7 (40.0-70.0) % Seg Neutrophils # 4.5 (1.8-7.7) K/mm3 PT 16.9 H (12.2-14.9) Sec. INR 1.24 H (0.87-1.13) APTT 29.2 (24.2-36.6) Sec. Estimated GFR 59 ml/min BUN/Creatinine Ratio 6 % Albumin/Globulin Ratio 1.4 % Vital Signs 06/08/21 06/08/21 23:18 23:43 Temperature 97.8 F Pulse Rate 57 L Respiratory 16 18 Rate Blood Pressure 124/76 [Right] O2 Sat by Pulse 97 Oximetry - EKG Data -: EKG Interpreted by Pa - EKG Data 06/09/21 01:06 The EKG is interpreted at 12: 20 A. fib, rate 101 bpm. Normal axis, QTC 476 ms, motion artifact. Abnormal EKG. Not a STEMI. - Radiology Data Radiology results: report reviewed, image reviewed LEFT ANKLE 3 VIEWS INDICATION / CLINICAL INFORMATION: left ankle pain COMPARISON: None available. FINDINGS: BONES and JOINT(S): No acute fracture or subluxation. No significant arthritis. SOFT TISSUES: There is moderate gene ralized edema along the ankle without other significant abnormalities. ADDITIONAL FINDINGS: None. IMPRESSION: 1. Moderate left ankle edema without other acute findings. Signer Name: Koffi Moralez MD Signed: 06/08/2021 10:29 PM Workstation Name: [id number] Critical care attestation.: If time is entered above; I have spent that time in minutes in the direct care of this critically ill patient, excluding procedure time. ED Disposition Clinical Impression: Left ankle pain, Afib, BMI 40.0-44.9, adult, Medication refill, Noncompliance, Monoarthritis of ankle Disposition: 01 HOME / SELF CARE / HOMELESS Is pt being admited?: No Does the pt Need Aspirin: No Condition: Stable Instructions: Uric Acid Nephropathy, Ankle Pain, Preventing Atrial Fibrillation-Related Stroke Additional Instructions: As we discussed, we suspect that left ankle pain and swelling coming from gout or pseudogout. Alternate ice packs and heat packs as needed for physical pain, weightbearing as tolerated, avoid consumption of excessive meat, red meat, alcohol, and salt. We also recommend aggressive weight loss. Patient should follow-up with orthopedic surgeon, Dr. Hensley Friday or Friday. The patient should call his office first thing in the morning, let the front office staff know that we have discussed the patient's case, and he would like to see the patient in the office for close outpatient follow-up. The patient should also follow-up with an outpatient supervisor cereal or primary are doctor for chronic medical issues such as congestive heart failure, and atrial fibrillation, within the next week. [facility] cardiology is a local cardiology practice. Please return to the emergency room right away with new pain, worsened pain, migration of pain, projectile vomiting, change in mental status, confusion, inability tolerate liquid feeds, fever, chills, lethargy irritability, or any new, worsened or different symptoms not present on the initial emergency room evaluation. Recommend that patient wear footwear that is supportive, with good arch support. Use crutches or cane as tolerated, and avoid utilization of sandals Prescriptions: AtorvaSTATin [Lipitor] 40 mg PO QHS #30 tab Spironolactone [Aldactone] 25 mg PO QDAY #30 tablet Aspirin [Aspirin BABY CHEW TAB] 81 mg PO QDAY #30 tab.chew carvediloL [Coreg] 6.25 mg PO BID #60 tablet Apixaban [Eliquis] 5 mg PO BID #60 tablet Furosemide [Lasix TAB] 40 mg PO QDAY #30 tablet Morphine Sulfate [Morphine Sulfate IR] 1 tab PO Q6HR PRN #10 tablet PRN Reason: Pain , Severe (7-10) Acetaminophen [Non-Aspirin Extra Strength] 650 mg PO Q6HR PRN #30 tablet PRN Reason: Pain , Severe (7-10) lisinopriL [Zestril TAB] 20 mg PO QDAY #30 tablet Referrals: ALEJA GAVIN JR, MD [Primary Care Provider] - 3-5 Days TERE HENSLEY MD [Staff Physician] - 3-5 Days [facility] [Provider Group] - 3-5 Days [facility] [Provider Group] - 3-5 Days Forms: Work/School Release Form(ED)
[2021-06-08 23:25] LABS: Basophils # (Auto) 0.1 K/mm3 (0.0-0.1); Basophils % (Auto) 0.8 % (0.0-1.8); Eosinophils # (Auto) 0.1 K/mm3 (0.0-0.4); Eosinophils % (Auto) 1.3 % (0.0-4.3); Hematocrit 47.3 % (35.5-45.6); Hemoglobin 15.4 gm/dl (11.8-15.2); Lymphocytes # (Auto) 2.7 K/mm3 (1.2-5.4); Mean Corpuscular HGB Conc 33 % (32-34); Mean Corpuscular Volume 101 fl (84-94); Monocytes # (Auto) 0.8 K/mm3 (0.0-0.8); Monocytes % (Auto) 10.2 % (0.0-7.3); Platelet Count 229 K/mm3 (140-440); Red Blood Count 4.69 M/mm3 (3.65-5.03); Red Cell Distribution Width 14.1 % (13.2-15.2)
--- NOTE | 2021-06-08 23:34 | XRay Report ---
LEFT ANKLE 3 VIEWS INDICATION / CLINICAL INFORMATION: left ankle pain COMPARISON: None available. FINDINGS: BONES and JOINT(S): No acute fracture or subluxation. No significant arthritis. SOFT TISSUES: There is moderate generalized edema along the ankle without other significant abnormali ties. ADDITIONAL FINDINGS: None. IMPRESSION: 1. Moderate left ankle edema without other acute findings. Signer Name: Koffi Moralez MD Signed: 06/08/2021 11:29 PM Workstation Name: [id number]
[2021-06-08 23:39] LABS: INR 1.24 (0.87-1.13); Partial Thromboplastin Time 29.2 Sec. (24.2-36.6)
[2021-06-08 23:45] VITALS: BP 124/76
[2021-06-08 23:51] LABS: Albumin 4.2 g/dL (3.9-5); Calcium 10.2 mg/dL (8.4-10.2)
[2021-06-09] MEDS ORDERED: POTASSIUM CHLORIDE ER 20 MEQ TAB PO ONE (00:09)
[2021-06-09] MEDS ORDERED: LIDOCAINE (1%) 10 MG/1 ML VIAL 20 ML MDV INFILTRATI ONE (00:41)
[2021-06-09 02:53] LABS: Uric Acid 13.9 mg/dL (3.5-7.6)
[2021-06-09] MEDS ORDERED: MORPHINE 4 MG/1 ML INJ IM STA (03:11)
[2021-06-09] MEDS ORDERED: POVIDONE-IODINE OINTMENT 28.35 GM TP SCH (08:00)
--- NOTE | 2021-06-09 12:53 | Electrocardiograph Report ---
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
== END 2021-06-09 04:00 | disposition home or self-care (01) ==
LOC: ED 20:59
DX: M25.572 Pain in left ankle and joints of left foot (principal); Z68.41 Body mass index [BMI] 40.0-44.9, adult; Z76.0 Encounter for issue of repeat prescription; M13.172 Monoarthritis, not elsewhere classified, left ankle and foot; I10 Essential (primary) hypertension; E11.8 Type 2 diabetes mellitus with unspecified complications; Z86.79 Personal history of other diseases of the circulatory system
CPT/HCPCS: 20605; 36415; 73610; 80053; 82550; 83735; 84550; 85025; 85610; 85730; 93005; 96372; 99284; J2270; J3490

== ENCOUNTER 2021-06-17 00:34 | Emergency (ER) | payer MEDICARE ==
--- NOTE | 2021-06-17 01:06 | Emergency Department Report ---
HPI - General Chief Complaint: Dyspnea/Respdistress Time Seen by Provider: 06/17/21 00:59 - HPI HPI: Room 21 The patient is a 55-year-old male present with a chief complaint of shortness of breath. Patient states his symptoms began this evening with shortness of breath. Patient denies history of cough or chest pain. The patient states his was recently diagnosed with Covid. The patient states he has been vaccinated receiving a second vaccine in September 2020. Patient has a history of CHF and states he has been compliant with his Lasix but did not take a dose today. EMS was called and found the patient hypoxic to approximately 87% on room air. The patient was placed on CPAP and transported to the ED where he was switched to BiPAP. Patient denies any other complaints ED Past Medical Hx - Past Medical History Hx Hypertension: Yes Hx Congestive Heart Failure: Yes Hx Diabetes: Yes Additional medical history: high cholesterol - Surgical History Past Surgical History?: No - Family History Family history: no significant - Social History Smoking Status: Current Every Day Smoker (1/2 pack/day) Substance Use Type: None (Denies illicit drug use), Alcohol (Occasional), Other - Medications Home Medications: Home Medications Medication Instructions Recorded Confirmed Last Taken Type Umeclidinium [place] [Incruse 62.5 mcg IH QDAY 02/19/19 02/19/19 Unknown History Ellipta 62.5MCG] Nicotine Polacrilex [Nicotine 4 mg BC QDAY #30 lozenge 08/18/19 Unknown Rx Lozenge] Acetaminophen [Non-Aspirin Extra 650 mg PO Q6HR PRN #30 tablet 06/09/21 Unknown Rx Strength] Apixaban [Eliquis] 5 mg PO BID #60 tablet 06/09/21 Unknown Rx Aspirin [Aspirin BABY CHEW TAB] 81 mg PO QDAY #30 tab.chew 06/09/21 Unknown Rx AtorvaSTATin [Lipitor] 40 mg PO QHS #30 tab 06/09/21 Unknown Rx Furosemide [Lasix TAB] 40 mg PO QDAY #30 tablet 06/09/21 Unknown Rx Morphine Sulfate [Morphine Sulfate 1 tab PO Q6HR PRN #10 tablet 06/09/21 Unknown Rx IR] Spironolactone [Aldactone] 25 mg PO QDAY #30 tablet 06/09/21 Unknown Rx carvediloL [Coreg] 6.25 mg PO BID #60 tablet 06/09/21 Unknown Rx lisinopriL [Zestril TAB] 20 mg PO QDAY #30 tablet 06/09/21 Unknown Rx ED Review of Systems ROS: Stated complaint: DIFFICULTY BREATHING Other details as noted in HPI Constitutional: denies: fever Eyes: denies: eye pain ENT: denies: throat pain Respiratory: shortness of breath. denies: cough Cardiovascular: denies: chest pain Endocrine: no symptoms reported Gastrointestinal: denies: abdominal pain Genitourinary: denies: dysuria Musculoskeletal: denies: back pain Neurological: denies: headache Physical Exam - Physical Exam Physical Exam: GENERAL: The patient is well-developed well-nourished male lying on stretcher not appearing to be in acute distress. [] HEENT: Normocephalic. Atraumatic. Extraocular motions are intact. Patient has moist mucous membranes. NECK: Supple. Trachea midline CHEST/LUNGS: Coarse breath sounds throughout. There is increased work of breathing. BiPAP in place HEART/CARDIOVASCULAR: Regular. There is tachycardia. There is no gallop rub or murmur. ABDOMEN: Abdomen is soft, nontender. Patient has normal bowel sounds. There is no abdominal distention. SKIN: There is no rash. There is 1+ bilateral lower extremity pitting edema. There is no diaphoresis. NEURO: The patient is awake, alert, and oriented. The patient is cooperative. The patient has no focal neurologic deficits. The patient has normal speech. GCS 15 MUSCULOSKELETAL: There is no evidence of acute injury. ED Medical Decision Making - Lab Data Result diagrams: 06/17/21 01:36 06/17/21 01:36 Laboratory Tests 06/17/21 06/17/21 06/17/21 01:36 01:36 01:36 WBC 6.1 RBC 4.38 Hgb 14.5 Hct 45.3 MCV 103 H MCH 33 H MCHC 32 RDW 14.6 Plt Count 256 Lymph % (Auto) 45.6 H [place] % (Auto) 7.3 Eos % (Auto) 2.4 Baso % (Auto) 1.2 Lymph # (Auto) 2.8 [place] # (Auto) 0.4 Eos # (Auto) 0.1 Baso # (Auto) 0.1 Seg Neutrophils % 43.5 Seg Neutrophils # 2.7 PT 16.6 H INR 1.21 H Sodium 139 Potassium 3.1 L Chloride 98.8 Carbon Dioxide 25 Anion Gap 18 BUN 8 L Creatinine 1.0 Estimated GFR > 60 BUN/Creatinine Ratio 8 Glucose 114 H Calcium 9.5 Total Bilirubin 0.80 AST 24 ALT 18 Alkaline Phosphatase 83 Total Creatine Kinase 207 H CK-MB (CK-2) 4.3 H CK-MB (CK-2) Rel Index 2.0 Troponin T 0.027 NT-Pro-B Natriuret Pep 1903 H Total Protein 6.9 Albumin 3.7 L Albumin/Globulin Ratio 1.2 - EKG Data -: EKG Interpreted by Me EKG shows normal: sinus rhythm Rate: tachycardia (102 bpm) - EKG Data When compared to previous EKG there are: previous EKG unavailable Interpretation: nonspecific ST-T wave stephen (T wave versions V5, V6) - Radiology Data Radiology results: report reviewed (Chest x-ray), image reviewed (Chest x-ray) interpreted by me: Chest x-ray-hilar fullness. No pneumothorax [facility] [address] [place] [address] XRay Report Signed Patient: JASWINDER MONTGOMERY III MR#: [id number] : 1965 Acct:[id number] Age/Sex: 55 / M ADM Date: 06/17/21 Loc: ED Attending Dr: Ordering Physician: ALONA TALAVERA MD Date of Service: 06/17/21 Procedure(s): XR chest 1V ap Accession Number(s): [id number] cc: ALONA TALAVERA MD Fluoro Time In Minutes: CHEST 1 VIEW 06/17/2021 1:33 AM INDICATION / CLINICAL INFORMATION: Shortness of breath, hypoxia. COMPARISON: 11/08/2020 FINDINGS: SUPPORT DEVICES: None. HEART / MEDIASTINUM: Cardiomegaly. LUNGS / PLEURA: No significant pulmonary or pleural abnormality. No pneumothorax. ADDITIONAL FINDINGS: No significant additional findings. IMPRESSION: 1. Cardiomegaly, otherwise no acute cardiopulmonary abnormality. Signer Name: Laith Avery DO Signed: 06/17/2021 2:39 AM Workstation Name: [id number] Transcribed By: NS Dictated By: LAITH AVERY DO Electronically Authenticated By: LAITH AVERY DO Signed Date/Time: 06/17/21238 DD/ 7 TD/TT: Print Cancel - Differential Diagnosis COVID-19, pneumonia, CHF exacerbation Critical care attestation.: If time is entered above; I have spent that time in minutes in the direct care of this critically ill patient, excluding procedure time. ED Disposition Clinical Impression: Acute congestive heart failure, Hypoxia Disposition: ADMITTED INPATIENT Is pt being admited?: Yes Does the pt Need Aspirin: Yes Condition: Fair Referrals: ALEJA GAVIN JR, MD [Primary Care Provider] - 3-5 Days Time of Disposition: 03:35 (Hospitalist notified (Dr Rothman))
[2021-06-17 01:56] LABS: Basophils # (Auto) 0.1 K/mm3 (0.0-0.1); Basophils % (Auto) 1.2 % (0.0-1.8); Eosinophils # (Auto) 0.1 K/mm3 (0.0-0.4); Eosinophils % (Auto) 2.4 % (0.0-4.3); Hematocrit 45.3 % (35.5-45.6); Hemoglobin 14.5 gm/dl (11.8-15.2); Lymphocytes # (Auto) 2.8 K/mm3 (1.2-5.4); Lymphocytes % (Auto) 45.6 % (13.4-35.0); Mean Corpuscular HGB Conc 32 % (32-34); Mean Corpuscular Volume 103 fl (84-94); Monocytes # (Auto) 0.4 K/mm3 (0.0-0.8); Monocytes % (Auto) 7.3 % (0.0-7.3); Platelet Count 256 K/mm3 (140-440); Red Blood Count 4.38 M/mm3 (3.65-5.03); Red Cell Distribution Width 14.6 % (13.2-15.2)
[2021-06-17 02:05] LABS: INR 1.21 (0.87-1.13)
[2021-06-17 02:13] LABS: Creatine Kinase MB 4.3 ng/mL (0.0-4.0)
[2021-06-17 02:14] LABS: Alanine Aminotransferase 18 units/L (7-56); Albumin 3.7 g/dL (3.9-5); BUN/Creatinine Ratio 8; Blood Urea Nitrogen 8 mg/dL (9-20); Calcium 9.5 mg/dL (8.4-10.2); Hemolysis Index 18
--- NOTE | 2021-06-17 02:44 | XRay Report ---
CHEST 1 VIEW 06/17/2021 1:33 AM INDICATION / CLINICAL INFORMATION: Shortness of breath, hypoxia. COMPARISON: 11/08/2020 FINDINGS: SUPPORT DEVICES: None. HEART / MEDIASTINUM: Cardiomegaly. LUNGS / PLEURA: No significant pulmonary or pleural abnormality. No pneumothorax. ADDITIONAL FINDINGS: No significant additional findings. IMPRESSION: 1. Cardiomegaly, otherwise no acute cardiopulmonary abnormality. Signer Name: Laith Blackburn DO Signed: 06/17/2021 2:39 AM Workstation Name: [id number]
[2021-06-17] MEDS ORDERED: FUROSEMIDE 40 MG/4 ML INJ IV ONE (03:30)
[2021-06-17] MEDS ORDERED: ASPIRIN 325 MG TAB PO ONE (03:36)
[2021-06-17] MEDS: POTASSIUM CHLORIDE 10 MEQ 10 MEQ/100 ML BAG IV SCH ×4 (04:30→11:50)
--- NOTE | 2021-06-17 10:57 | History and Physical Report ---
History of Present Illness Date of examination: 06/17/21 Date of admission: 06/17/21 04:06 Chief complaint: SOB History of present illness: The patient is a 55-year-old male present with a chief complaint of shortness of breath. Patient states his symptoms began this evening with shortness of breath. Patient denies history of cough or chest pain. The patient states his was recently diagnosed with Covid. The patient states he has been vaccinated receiving a second vaccine in September 2020. Patient has a history of CHF and states he has been compliant with his Lasix but did not take a dose today. EMS was called and found the patient hypoxic to approximately 87% on room air. The patient was placed on CPAP and transported to the ED where he was switched to B iPAP. Patient denies any other complaints PAST MEDICAL HISTORY: hypertension, CHFrEF 35%, hyperlipidemia, atrial fib PAST SURGICAL HISTORY:None FAMILY HISTORY:hypertension, diabetes SOCIAL HISTORY: + tobacco, no drugs, + alcohol Review Of Systems: Constitutional: no weight loss, fever, chills Ears, eyes, nose, mouth and throat: no nasal congestion, no nasal discharge, no sinus pressure, blurry vision, diplopia Neck: No neck pain or rigidity. Cardiovascular: No palpitation Respiratory: No cough Gastrointestinal: No hematochezia, abdominal pain Genitourinary : no dysuria, frequency , hematuria Musculoskeletal: no muscle ache , joint pain Integumentary: no rash, no pruritis Neurological: no parathesias, focal weakness Endocrine: no cold or heat intolerance, no polyuria or polydipsia Hematologic/Lymphatic: no easy bruising, no easy bleeding, no gland swelling Allergic/Immunologic: no urticaria, no angioedema. Medications and Allergies Allergies Allergy/AdvReac Type Severity Reaction Status Date / Time No Known Allergies Allergy Verified 02/18/19 03:44 Home Medications Medication Instructions Recorded Confirmed Last Taken Type Umeclidinium [place] [Incruse 62.5 mcg IH QDAY 02/19/19 02/19/19 Unknown History Ellipta 62.5MCG] Nicotine Polacrilex [Nicotine 4 mg BC QDAY #30 lozenge 08/18/19 Unknown Rx Lozenge] Acetaminophen [Non-Aspirin Extra 650 mg PO Q6HR PRN #30 tablet 06/09/21 Unknown Rx Strength] Apixaban [Eliquis] 5 mg PO BID #60 tablet 06/09/21 Unknown Rx Aspirin [Aspirin BABY CHEW TAB] 81 mg PO QDAY #30 tab.chew 06/09/21 Unknown Rx AtorvaSTATin [Lipitor] 40 mg PO QHS #30 tab 06/09/21 Unknown Rx Furosemide [Lasix TAB] 40 mg PO QDAY #30 tablet 06/09/21 Unknown Rx Morphine Sulfate [Morphine Sulfate 1 tab PO Q6HR PRN #10 tablet 06/09/21 Unknown Rx IR] Spironolactone [Aldactone] 25 mg PO QDAY #30 tablet 06/09/21 Unknown Rx carvediloL [Coreg] 6.25 mg PO BID #60 tablet 06/09/21 Unknown Rx lisinopriL [Zestril TAB] 20 mg PO QDAY #30 tablet 06/09/21 Unknown Rx Exam - Constitutional Vitals: Temp Pulse Resp BP Pulse Ox 98.9 F 93 H 35 H 134/68 97 06/17/21 00:35 06/17/21 08:11 06/17/21 08:11 06/17/21 08:11 06/17/21 08:11 HEART Score - HEART Score Troponin: Troponin T 0.027 ng/mL (0.00-0.029) 06/17/21 01:36 Results - Labs CBC & Chem 7: 06/17/21 01:36 06/17/21 01:36 Labs: Abnormal lab results 06/17/21 06/17/21 06/17/21 Range/Units 01:36 01:36 01:36 MCV 103 H (84-94) fl MCH 33 H (28-32) pg Lymph % (Auto) 45.6 H (13.4-35.0) % PT 16.6 H (12.2-14.9) Sec. INR 1.21 H (0.87-1.13) Potassium 3.1 L (3.6-5.0) mmol/L BUN 8 L (9-20) mg/dL Glucose 114 H (75-100) mg/dL Total Creatine Kinase 207 H (55-170) units/L CK-MB (CK-2) 4.3 H (0.0-4.0) ng/mL NT-Pro-B Natriuret Pep 1903 H (0-900) pg/mL Albumin 3.7 L (3.9-5) g/dL Assessment and Plan Acute on chronic CHF exacerbation -- admit to telemetry bed - monitor with serial CE and EKG - will place on Aspirin, statin, and Lasix IV - order 2D echo and consult cardiology - cardiac diet now, daily weights, monitor in's and O's Atrial fib, rate controlled, resume anticoagulation with Eliquis HTN, resume home meds, iv lasix COVID 19 PUI, -Ordered for Covid PCR hypokalemia, replete and monitor BMP DVT Px, anticoagulation with Eliquis
[2021-06-17] MEDS ORDERED: ACETAMINOPHEN 500 MG TAB PO PRN (10:58)
[2021-06-17] MEDS ORDERED: ACETAMINOPHEN 325 MG TAB PO PRN (11:30)
[2021-06-17 11:51] VITALS: BP 133/91
[2021-06-17] MEDS ORDERED: POTASSIUM CHLORIDE ER 10 MEQ TAB PO SCH (12:00)
[2021-06-17] MEDS ORDERED: FUROSEMIDE 40 MG/4 ML INJ IV SCH (18:00)
[2021-06-17] MEDS ORDERED: APIXABAN 5 MG TAB PO SCH (22:00)
[2021-06-17] MEDS ORDERED: carvediloL 6.25 MG TAB PO SCH (22:00)
[2021-06-17] MEDS ORDERED: NON-FORMULARY EACH (Apixaban 5 MG Tablet) PO SCH (22:00)
[2021-06-18] MEDS ORDERED: ASPIRIN 81 MG TAB CHEW PO SCH (10:00)
[2021-06-18] MEDS ORDERED: LISINOPRIL 20 MG TAB PO SCH (10:00)
--- NOTE | 2021-06-18 10:51 | Electrocardiograph Report ---
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
== END 2021-06-17 14:29 | disposition left against medical advice (07) ==
LOC: ED 00:34 → 3A 04:06 → UNDOADMOB 04:06 → ED 14:29
DX: I11.0 Hypertensive heart disease with heart failure (principal); I50.9 Heart failure, unspecified; R09.02 Hypoxemia; Z20.822 Contact with and (suspected) exposure to COVID-19; E11.9 Type 2 diabetes mellitus without complications; F17.200 Nicotine dependence, unspecified, uncomplicated; E78.00 Pure hypercholesterolemia, unspecified
CPT/HCPCS: 36415; 71045; 80053; 82550; 82553; 83880; 84484; 85025; 85610; 87040; 93005; 96361; 96374; 99284; J1940; J3480; U0003